=== PATIENT | female | born 1950 | race African-American/Black ===

== ENCOUNTER 2016-12-29 07:41 | Emergency (ER) | payer OTHER ==
[2016-12-29 09:07] LABS: APPEARANCE,URINE SLIGHTLY-CLOUDY; BILIRUBIN,URINE NEGATIVE (NEGATIVE); GLUCOSE, URINE NEGATIVE (NEGATIVE); KETONES,URINE NEGATIVE (NEGATIVE); LEUKOCYTE ESTERASE,URINE SMALL (NEGATIVE); NITRITE,URINE NEGATIVE (NEGATIVE); PROTEIN,URINE NEGATIVE (NEGATIVE); UROBILINOGEN,URINE NEGATIVE mg/dL (<2.0)
[2016-12-29 09:24] LABS: ABSOLUTE EOSINOPHILS # (AUTO) 0.1 10^3/uL (0.0-0.6); ABSOLUTE LYMPHOCYTES (AUTO) 1.9 10^3/uL (0.5-4.7); ABSOLUTE MONOCYTES (AUTO) 0.3 10^3/uL (0.1-1.4); ABSOLUTE NEUT (AUTO) 1.8 10^3/uL (1.7-8.2); BASOPHILS % (AUTO) 0.1 % (0-2); EOSINOPHILS % (AUTO) 2.2 % (0-6); HEMATOCRIT 39.3 % (36.0-47.0); HEMOGLOBIN 12.6 g/dL (12.0-15.5); HGB HCT DIFFERENCE -1.5; LYMPHOCYTES % (AUTO) 46.6 % (13-45); MEAN CORPUSCULAR HEMOGLOBIN 31.6 pg (27.0-33.4); MEAN CORPUSCULAR HGB CONC 32.2 g/dL (32.0-36.0); MEAN CORPUSCULAR VOLUME 98 fl (80-97); RED CELL DISTRIBUTION WIDTH 13.8 % (11.5-14.0); SEGMENTED NEUTROPHILS % (AUTO) 44.1 % (42-78); WHITE BLOOD COUNT 4.2 10^3/uL (4.0-10.5)
[2016-12-29 09:33] LABS: ALANINE AMINOTRANSFERASE 24 U/L (9-52); ALBUMIN 3.6 g/dL (3.5-5.0); ALKALINE PHOSPHATASE 62 U/L (38-126); ANION GAP 8 (5-19); ASPARTATE AMINO TRANSFERASE 16 U/L (14-36); BILIRUBIN,DIRECT 0.3 mg/dL (0.0-0.4); BILIRUBIN,TOTAL 0.5 mg/dL (0.2-1.3); BLOOD UREA NITROGEN 12 mg/dL (7-20); CALCIUM 9.5 mg/dL (8.4-10.2); CARBON DIOXIDE 29 mmol/L (22-30); CHLORIDE 106 mmol/L (98-107); CREATININE RESULT 0.84 mg/dL (0.52-1.25); GLUCOSE 202 mg/dL (75-110); LIPASE 310.2 U/L (23-300); POTASSIUM 4.1 mmol/L (3.6-5.0); SODIUM 143.2 mmol/L (137-145); TOTAL PROTEIN 6.9 g/dL (6.3-8.2)
[2016-12-29] MEDS ORDERED: ONDANSETRON HCL INJ/PF 4 MG/2 ML SDV IV ONE (09:42)
[2016-12-29] MEDS ORDERED: NORMAL SALINE 1000 ML 1,000 ML IV PRN (09:42)
[2016-12-29] MEDS ORDERED: MORPHINE SULFATE 10 MG/ML INJ IV ONE (09:42)
--- NOTE | 2016-12-29 09:53 | ER Document Report ---
ED General - General Chief Complaint: Abdominal Pain >50 Stated Complaint: NAUSEA Time Seen by Provider: 12/29/16 08:02 Mode of Arrival: Ambulatory Information source: Patient Notes: 56-year-old female presents with complaints of abdominal pain. Patient has a history of pancreatitis notes the pain is in the left upper quadrant associated with nausea without vomiting TRAVEL OUTSIDE OF THE [place] IN LAST 30 DAYS: No - HPI Onset: Yesterday Onset/Duration: Sudden Quality of pain: Sharp Severity: Mild Pain Level: 1 Associated symptoms: Headache - Admits to mild headache, Nausea Exacerbated by: Denies Relieved by: Denies Similar symptoms previously: Yes Recently seen / treated by doctor: Yes - Related Data Allergies/Adverse Reactions: Aztcteq-Qlt-Fhc Reductase Inhibitor Adverse Reaction (Verified 12/29/16 07:42) Myalgia Past Medical History - Social History Smoking Status: Never Smoker Cigarette use (# per day): No Chew tobacco use (# tins/day): No Smoking Education Provided: No Family History: Arthritis, DM, Hyperlipidemia, Hypertension, Malignancy Patient has suicidal ideation: No Patient has homicidal ideation: No - Past Medical History Cardiac Medical History: Reports: Hx Hypercholesterolemia, Hx Hypertension Denies: Hx DVT Pulmonary Medical History: Reports: Hx Bronchitis, Hx Pneumonia Neurological Medical History: Reports: Hx Migraine Endocrine Medical History: Reports: Hx Diabetes Mellitus Type 2 Renal/ Medical History: Denies: Hx Peritoneal Dialysis GI Medical History: Reports: Hx Colonoscopy, Hx Endoscopy Musculoskeltal Medical History: Reports Hx Arthritis Psychiatric Medical History: Denies: Hx Depression Past Surgical History: Reports: Hx Section - Immunizations Immunizations up to date: Yes Hx Diphtheria, Pertussis, Tetanus Vaccination: Yes Review of Systems - Review of Systems Notes: REVIEW OF SYSTEMS: CONSTITUTIONAL : Denies fever, chills, or sweats. Denies recent illness. EENT: Denies eye, ear, throat, or mouth pain or symptoms. Denies nasal or sinus congestion or discharge. Denies throat, tongue, or mouth swelling or difficulty swallowing. CARDIOVASCULAR: Denies chest pain. Denies palpitations or racing or irregular heart beat. Denies ankle edema. RESPIRATORY: Denies cough, cold, or chest congestion. Denies shortness of breath, difficulty breathing, or wheezing. GASTROINTESTINAL: Admits to abdominal pain GENITOURINARY: Denies difficulty urinating, painful urination, burning, frequency, blood in urine, or discharge. FEMALE GENITOURINARY: Denies vaginal bleeding, heavy or abnormal periods, irregular periods. Denies vaginal discharge or odor. MUSCULOSKELETAL: Denies back or neck pain or stiffness. Denies joint pain or swelling. SKIN: Denies rash, lesions or sores. HEMATOLOGIC : Denies easy bruising or bleeding. LYMPHATIC: Denies swollen, enlarged glands. NEUROLOGICAL: Admits to mild headache PSYCHIATRIC: Denies anxiety or stress. Denies depression, suicidal ideation, or homicidal ideation. ALL OTHER SYSTEMS REVIEWED AND NEGATIVE. PHYSICAL EXAMINATION: GENERAL: Well-appearing, well-nourished and in no acute distress. HEAD: Atraumatic, normocephalic. EYES: Pupils equal round and reactive to light, extraocular movements intact, conjunctiva are normal. ENT: Nares patent, oropharynx clear without exudates. Moist mucous membranes. NECK: Normal range of motion, supple without lymphadenopathy LUNGS: Breath sounds clear to auscultation bilaterally and equal. No wheezes rales or rhonchi. HEART: Regular rate and rhythm without murmurs ABDOMEN: Soft, tender in the left upper quadrant no rebound no guarding Female : deferred Musculoskeletal: Normal range of motion, no pitting or edema. No cyanosis. NEUROLOGICAL: Cranial nerves grossly intact. Normal speech, normal gait. Normal sensory, motor exams PSYCH: Normal mood, normal affect. SKIN: Warm, Dry, normal turgor, no rashes or lesions noted. Dictation was performed using [employer] voice recognition software Physical Exam - Vital signs Vitals: Temp Pulse Resp BP Pulse Ox 97.9 F 76 20 145/88 H 97 12/29/16 07:49 12/29/16 07:49 12/29/16 07:49 12/29/16 07:49 12/29/16 07:49 Course - Re-evaluation Re-evalutation: 12/29/16 09:53 Patient has pancreatitis again, IV fluids ordered nausea pain control given I expect discharge given how well she looks 12/29/16 11:16 Patient notes improvement of her symptoms, I will discharge at this time to follow-up with GI, she is otherwise stable for discharge After performing a Medical Screening Examination, I estimate there is LOW risk for ACUTE APPENDICITIS, BOWEL OBSTRUCTION, ACUTE CHOLECYSTITIS, PERFORATED DIVERTICULITIS, INCARCERATED HERNIA, PANCREATITIS, PELVIC INFLAMMATORY DISEASE, PERFORATED ULCER, ECTOPIC , or TUBO-OVARIAN ABSCESS, thus I consider the discharge disposition reasonable. Also, there is no evidence or peritonitis , sepsis, or toxicity. I have reevaluated this patient multiple times and no significant life threatening changes are noted. The patient and I have discussed the diagnosis and risks, and we agree with discharging home with close follow-up with the understanding that symptoms and presentations can change. We also discussed returning to the Emergency Department immediately if new or worsening symptoms occur. We have discussed the symptoms which are most concerning (e.g., bloody stool, fever, changing or worsening pain, vomiting) that necessitate immediate return. - Vital Signs Vital signs: Temp Pulse Resp BP Pulse Ox 97.9 F 76 20 145/88 H 97 12/29/16 07:49 12/29/16 07:49 12/29/16 07:49 12/29/16 07:49 12/29/16 07:49 - Laboratory Result Diagrams: 12/29/16 08:39 12/29/16 08:39 Laboratory results interpreted by me: 12/29/16 12/29/16 12/29/16 08:39 08:39 08:39 MCV 98 H Lymphocytes % 46.6 H Glucose 202 H Lipase 310.2 H Ur Leukocyte Esterase SMALL H Discharge - Discharge Clinical Impression: Acute pancreatitis Qualifiers: Pancreatitis type: unspecified pancreatitis type Acute pancreatitis complication: unspecified Qualified Code(s): K85.90 - Acute pancreatitis without necrosis or infection, unspecified Hypertension Qualifiers: Hypertension type: essential hypertension Qualified Code(s): I10 - Essential ( primary) hypertension Condition: Stable Disposition: HOME, SELF-CARE Instructions: Pancreatitis ([facility]) Prescriptions: Hydrocodone/Acetaminophen [[place] 5-325 mg Tablet] 1 tab PO Q6 #14 tablet Promethazine HCl [Phenergan 25 mg Tablet] 1 - 2 tab PO Q6H PRN #15 tablet PRN Reason: Referrals: ROME ARNOLD MD [Primary Care Provider] - Follow up as needed PIPER FOX MD [ACTIVE STAFF] - 12/30/16
[2016-12-29 12:05] VITALS: BP 147/70
== END 2016-12-29 12:05 | disposition home or self-care (01) ==
LOC: ER 07:41
DX: K85.90 Acute pancreatitis without necrosis or infection, unspecified (principal); R10.12 Left upper quadrant pain; R11.0 Nausea; R51 Headache; I10 Essential (primary) hypertension; E11.9 Type 2 diabetes mellitus without complications
CPT/HCPCS: 99284; 96361; 96374; 96375; 36415; 83690; 85025; 80053; 81001; J2270; J2405; J7030

== ENCOUNTER 2017-02-26 20:27 | Emergency (ER) | payer OTHER ==
[2017-02-27] MEDS ORDERED: ONDANSETRON 4 MG TAB.RAPDIS PO ONE (00:04)
--- NOTE | 2017-02-27 00:05 | ER Document Report ---
ED Medical Screen (RME) - General Chief Complaint: Headache Stated Complaint: HEADACHE,NECK PAIN,NAUSEA Time Seen by Provider: 02/27/17 00:03 Notes: 66-year-old female, chief complaint of pain in the upper left part of her neck and in her head, she states she slipped getting off the toilet and hit her head on her counter, she states she knocked herself out for "a few seconds". She denies vomiting but reports nausea. She states this actually happened 2 days ago but it kept hurting so she came for evaluation. She has not on a blood thinner. She also states she has diabetes and "wants her sugar checked". She denies feeling lightheaded, chest pain, shortness of breath, focal numbness or weakness, incontinence. TRAVEL OUTSIDE OF THE [place] IN LAST 30 DAYS: No - Related Data Allergies/Adverse Reactions: Jtaphir-Lpr-Deh Reductase Inhibitor Adverse Reaction (Verified 12/29/16 07:42) Myalgia Past Medical History - Past Medical History Cardiac Medical History: Reports: Hx Hypercholesterolemia, Hx Hypertension Denies: Hx DVT Pulmonary Medical History: Reports: Hx Bronchitis, Hx Pneumonia Neurological Medical History: Reports: Hx Migraine Endocrine Medical History: Reports: Hx Diabetes Mellitus Type 2 Renal/ Medical History: Denies: Hx Peritoneal Dialysis GI Medical History: Reports: Hx Colonoscopy, Hx Endoscopy Musculoskeltal Medical History: Reports Hx Arthritis Psychiatric Medical History: Denies: Hx Depression Past Surgical History: Reports: Hx Section - Immunizations Immunizations up to date: Yes Hx Diphtheria, Pertussis, Tetanus Vaccination: Yes Physical Exam - Vital signs Vitals: Temp Pulse Resp BP Pulse Ox 97.9 F 87 16 127/82 H 97 02/26/17 20:45 02/26/17 20:45 02/26/17 20:45 02/26/17 20:45 02/26/17 20:45 - Back Back: Tender - Pain mainly in the superior paracervical areas, there is worse pain on the left, generalized tenderness otherwise - Neurological Neuro grossly intact: Yes Cognition: Normal Orientation: AAOx4 Erna Coma Scale Eye Opening: Spontaneous [place] Coma Scale Verbal: Oriented [place] Coma Scale Motor: Obeys Commands [place] Coma Scale Total: 15 Speech: Normal Cranial nerves: Normal Cerebellar coordination: Normal Motor strength normal: LUE, RUE, LLE, RLE Course - Vital Signs Vital signs: Temp Pulse Resp BP Pulse Ox 97.9 F 87 16 127/82 H 97 02/26/17 20:45 02/26/17 20:45 02/26/17 20:45 02/26/17 20:45 02/26/17 20:45
[2017-02-27 00:53] LABS: ANION GAP 14 (5-19); BLOOD UREA NITROGEN 20 mg/dL (7-20); CALCIUM 10.4 mg/dL (8.4-10.2); CARBON DIOXIDE 29 mmol/L (22-30); CHLORIDE 100 mmol/L (98-107); CREATININE RESULT 1.14 mg/dL (0.52-1.25); GLUCOSE 269 mg/dL (75-110); POTASSIUM 4.4 mmol/L (3.6-5.0); SODIUM 142.7 mmol/L (137-145)
--- NOTE | 2017-02-27 01:06 | RADIOLOGY REPORT (SQ) ---
EXAM DESCRIPTION: CT HEAD WITHOUT COMPLETED DATE/TIME: 02/27/2017 12:55 am REASON FOR STUDY: fall, head injury, LOC COMPARISON: None. TECHNIQUE: Axial images acquired through the brain without intravenous contrast. Images reviewed wi th bone, brain and subdural windows. Images stored on PACS. All CT scanners at this facility use dose modulation, iterative reconstruction, and/or weight based d osing when appropriate to reduce radiation dose to as low as reasonably achievable (ALARA). [facility]: Dose Right [facility]: CareDose [facility]: Dose Right [facility]: Teradose 4D [facility]: Smart [employer] RADIATION DOSE: Up-to-date CT equipment and radiation dose reduction techniques were employed. CTDIv ol: 64.6 mGy. DLP: 1292 mGy-cm. mGy. LIMITATIONS: None. FINDINGS: VENTRICLES: Normal size and contour. CEREBRUM: No masses. No hemorrhage. No midline shift. No evidence for acute infarction. Normal gra y/white matter differentiation. No areas of low density in the white matter. CEREBELLUM: No masses. No hemorrhage. No alteration of density. No evidence for acute infarction. EXTRAAXIAL SPACES: No fluid collections. No masses. Atherosclerosis. ORBITS AND GLOBE: No intra- or extraconal masses. Normal contour of globe without masses. CALVARIUM: No fracture. PARANASAL SINUSES: No fluid or mucosal thickening. SOFT TISSUES: No mass or hematoma. OTHER: No other significant finding. IMPRESSION: No acute findings. COMMENT: Quality ID # [id number]: Final reports with documentation of one or more dose reduction techniques (e.g., Automated exposure control, adjustment of the mA and/or kV according to patient size, use of iterative reconstruction technique) TECHNICAL DOCUMENTATION: JOB ID: [id number] [employer]- All Rights Reserved
--- NOTE | 2017-02-27 01:43 | RADIOLOGY REPORT (SQ) ---
EXAM DESCRIPTION: CT CERVICAL SPINE WITHOUT COMPLETED DATE/TIME: 02/27/2017 12:55 am REASON FOR STUDY: fall, neck pain COMPARISON: None. TECHNIQUE: Axial images acquired through the cervical spine without intravenous contrast. Images re viewed with lung, soft tissue and bone windows. Reconstructed coronal and sagittal MPR images review ed. Images stored on PACS. All CT scanners at this facility use dose modulation, iterative reconstruction, and/or weight based d osing when appropriate to reduce radiation dose to as low as reasonably achievable (ALARA). [facility]: Dose Right [facility]: CareDose [facility]: Dose Right [facility]: Teradose 4D [facility]: Smart [employer] RADIATION DOSE: Up-to-date CT equipment and radiation dose reduction techniques were employed. CTDIv ol: 17.5 mGy. DLP: 376 mGy-cm. mGy. LIMITATIONS: None. FINDINGS: ALIGNMENT: Anatomic. MINERALIZATION: Normal. VERTEBRAL BODIES: No fractures or dislocation. DISCS: As below. FACETS, LATERAL MASSES, POSTERIOR ELEMENTS: C3-C4: Uihx-vo-cxosqnze C3-C4 spondylosis with jqhg-nm-ofiagfxx bilateral C4 bony foraminal stenosis , left more than right. Small disc bulge. C4-C5, C5-C6: Small desiccated disc bulge. Minimal spondylosis. HARDWARE: None in the spine. VISUALIZED RIBS: No fractures. LUNG APICES AND SOFT TISSUES: No significant or acute findings. OTHER: No other significant finding. IMPRESSION: No acute findings. TECHNICAL DOCUMENTATION: JOB ID: [id number] Quality ID # [id number]: Final reports with documentation of one or more dose reduction techniques (e.g., Au tomated exposure control, adjustment of the mA and/or kV according to patient size, use of iterative reconstruction technique) 2010 [employer]- All Rights Reserved
--- NOTE | 2017-02-27 02:02 | ER Document Report ---
ED General - General Chief Complaint: Headache Stated Complaint: HEADACHE,NECK PAIN,NAUSEA Time Seen by Provider: 02/27/17 00:03 Notes: Patient is a pleasant 66-year-old female who presents with complaint of headache and neck pain. Patient says she fell 2 days ago and hit her head against the sink. She also had neck against a sink as well. She has been having some pain ever since. Slight dizziness. No focal weakness or numbness. No other injuries. No fevers. No vomiting. Some nausea. No other complaints at this time. Is not on blood thinners. TRAVEL OUTSIDE OF THE [place] IN LAST 30 DAYS: No - Related Data Allergies/Adverse Reactions: Mefteip-Xmz-Gjx Reductase Inhibitor Adverse Reaction (Verified 12/29/16 07:42) Myalgia Past Medical History - Social History Smoking Status: Never Smoker Frequency of alcohol use: Rare Drug Abuse: None Family History: Arthritis, DM, Hyperlipidemia, Hypertension, Malignancy Patient has suicidal ideation: No Patient has homicidal ideation: No - Past Medical History Cardiac Medical History: Reports: Hx Hypercholesterolemia, Hx Hypertension Denies: Hx DVT Pulmonary Medical History: Reports: Hx Bronchitis, Hx Pneumonia Neurological Medical History: Reports: Hx Migraine Endocrine Medical History: Reports: Hx Diabetes Mellitus Type 2 Renal/ Medical History: Denies: Hx Peritoneal Dialysis GI Medical History: Reports: Hx Colonoscopy, Hx Endoscopy Musculoskeltal Medical History: Reports Hx Arthritis Psychiatric Medical History: Denies: Hx Depression Past Surgical History: Reports: Hx Section - Immunizations Immunizations up to date: Yes Hx Diphtheria, Pertussis, Tetanus Vaccination: Yes Review of Systems - Review of Systems Notes: My Normal Review Basic REVIEW OF SYSTEMS: CONSTITUTIONAL : Denies fever, chills, or sweats. Denies recent illness. EENT: Head and neck pain. MUSCULOSKELETAL: Neck pain. SKIN: Denies rash or skin lesions. HEMATOLOGIC : Denies easy bruising or bleeding. NEUROLOGICAL: Denies altered mental status or loss of consciousness. Has a headache. Denies weakness or paralysis or loss of use of either side. Denies problems with gait or speech. Denies sensory or motor loss. ALL OTHER SYSTEMS REVIEWED AND NEGATIVE. Physical Exam - Vital signs Vitals: Temp Pulse Resp BP Pulse Ox 97.9 F 87 16 127/82 H 97 02/26/17 20:45 02/26/17 20:45 02/26/17 20:45 02/26/17 20:45 02/26/17 20:45 - Notes Notes: General Appearance: Well nourished, alert, cooperative, no acute distress, no obvious discomfort. Well-appearing. Vitals: reviewed, See vital signs table. Head: no swelling or tenderness to the head Eyes: PERRL, EOMI, Conjuctiva clear Neck: Supple, midline tenderness palpation around C4-C5 area. No step-offs or deformities. Back: No tenderness to palpation of the thoracic or lumbar spine. No step-offs or deformities. Extremities: strength 5/5 in all extremities, good pulses in all extremities, no swelling or tenderness in the extremities, no edema. Skin: warm, dry, appropriate color, no rash Neuro: speech clear, oriented x 3, normal affect, responds appropriately to questions. Cranial nerves II through XII are intact. Distal sensation intact. Patient moves all extremities without difficulty. Course - Re-evaluation Re-evalutation: 02/27/17 04:[address] scans were negative. She looks well. She has normal gait on reevaluation. Formed I suspect she has a slight concussion from hitting her head. Encouraged her to follow-up closely with her doctor. I informed her return to ER if she has intractable vomiting, intractable pain, or feels unwell. Patient agrees with plan and will be discharged home. Dictation of this chart was performed using voice recognition software; therefore, there may be some unintended grammatical errors. - Vital Signs Vital signs: Temp Pulse Resp BP Pulse Ox 98.1 F 74 18 130/84 H 100 02/27/17 02:26 02/27/17 02:26 02/27/17 02:26 02/27/17 02:26 02/27/17 02:26 - Laboratory Result Diagrams: 02/26/17 23:59 Laboratory results interpreted by me: 02/26/17 23:59 Est GFR ( Amer) 58 L Est GFR (Non-Af Amer) 48 L Glucose 269 H Calcium 10.4 H Discharge - Discharge Clinical Impression: Neck pain, Hyperglycemia Mild closed head injury Qualifiers: Encounter type: initial encounter Qualified Code(s): S09.90XA - Unspecified injury of head, initial encounter Condition: Good Disposition: HOME, SELF-CARE Additional Instructions: Concussion You have suffered a concussion -- a temporary loss of certain brain functions due to a mild brain injury. The recovery is usually rapid and complete. The temporary problems occurring with a concussion can include loss of consciousness, dizziness, nausea, vomiting, and confusion. Repeat concussions can cause brain damage. In the future, avoid activities that will cause a blow to your head. Wear a helmet for sports such as snowboarding, biking, or skating. It's important that someone be with you for the first 24 hours. During this time, do not exercise or drive a vehicle. Do not take any pain medication stronger than acetaminophen unless prescribed by the physician. Any significant changes should be reported immediately to the physician. Signs of a problem may include: (1) Mental confusion (2) Incoordination or staggering (3) Repeated or forceful vomiting (4) Clear or bloody drainage from ear, mouth, or nose (5) Severe headache, not relieved by acetaminophen or prescribed pain medication (6) Failure to improve in 24 hours Your blood sugars was a little high. Please continue take her Lantus and your diabetes medications. Please follow-up with your primary care doctor for reevaluation in 2-3 days. Please return to the ER immediately if you have worsening pain, difficulty in bleeding, vomiting, or feel unwell. Referrals: ROME ARNOLD MD [Primary Care Provider] - 03/01/17
[2017-02-27 02:27] VITALS: BP 130/84
== END 2017-02-27 02:27 | disposition home or self-care (01) ==
LOC: EEVIPCON 20:27 → ER 20:27
DX: S09.90XA Unspecified injury of head, initial encounter (principal); R11.0 Nausea; M54.2 Cervicalgia; W18.30XA Fall on same level, unspecified, initial encounter; E11.65 Type 2 diabetes mellitus with hyperglycemia; E78.00 Pure hypercholesterolemia, unspecified; I10 Essential (primary) hypertension
CPT/HCPCS: 99284; 36415; 80048; 70450; 72125; S0119

== ENCOUNTER → 2017-11-06 | Outpatient (CLI) | payer OTHER ==
--- NOTE | 2017-11-07 15:08 | RADIOLOGY REPORT (SQ) ---
EXAM DESCRIPTION: SHOULDER RIGHT 2 OR MORE VIEWS COMPLETED DATE/TIME: 11/06/2017 2:13 pm REASON FOR STUDY: PAIN IN RIGHT SHOULDER M25.511 PAIN IN RIGHT SHOULDER M25.551 PAIN IN RIGHT HIP COMPARISON: 06/23/2015 NUMBER OF VIEWS: Three views. TECHNIQUE: Internal rotation, external rotation, and Y view images acquired of the right shoulder. LIMITATIONS: None. FINDINGS: MINERALIZATION: Normal. BONES: No acute fracture or dislocation. GLENOHUMERAL JOINT: Slight to mild arthritic changes, stable finding. ACROMIOCLAVICULAR JOINT: Stable mild arthritic changes. SOFT TISSUES: No calcifications. VISUALIZED RIBS, SPINE, AND LUNG: No other significant finding. OTHER: No other significant finding. IMPRESSION: 1 No significant interval changes since the prior examination dated 06/23/2015. Stable mild arthritic changes acromioclavicular and glenohumeral joints. TECHNICAL DOCUMENTATION: JOB ID: [id number] [place]- All Rights Reserved Reading location - IP/workstation name: [email or web address]
--- NOTE | 2017-11-07 16:49 | RADIOLOGY REPORT (SQ) ---
EXAM DESCRIPTION: HIP RIGHT AP/LATERAL COMPLETED DATE/TIME: 11/06/2017 2:13 pm REASON FOR STUDY: PAIN IN RIGHT HIP M25.511 PAIN IN RIGHT SHOULDER M25.551 PAIN IN RIGHT HIP COMPARISON: 07/28/2014 NUMBER OF VIEWS: Two views. TECHNIQUE: AP and frog-leg view of the right hip. LIMITATIONS: None. FINDINGS: MINERALIZATION: Normal. RIGHT HIP: Stable mild degenerative changes. No fracture or dislocation. OPPOSITE HIP: No fracture or dislocation. Stable mild degenerative changes No worrisome bone lesions . SOFT TISSUES: No findings. 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 Surgical metallic clips in the pelvic region, unchanged finding. IMPRESSION: 1 No significant interval changes since the prior study dated 07/28/2014. Stable mild de generative changes at the hips. TECHNICAL DOCUMENTATION: JOB ID: [id number] [employer]- All Rights Reserved Reading location - IP/workstation name: [email or web address]
== END ==
LOC: OD 13:55
PROVIDERS: ATTEND Internal Medicine
DX: M25.511 Pain in right shoulder (principal); M25.551 Pain in right hip; M16.11 Unilateral primary osteoarthritis, right hip

== ENCOUNTER 2017-11-12 21:06 | Emergency (ER) | payer OTHER, MEDICARE ==
[2017-11-12 21:16] VITALS: BP 123/62
[2017-11-12] MEDS ORDERED: MUPIROCIN CALCIUM 2% CREAM 15 GM TP ONE (23:04)
[2017-11-12] MEDS ORDERED: HYDROCODONE/ACETAMINOPHEN 5-325 MG (6 TAB/ER DISP) PO PRN (23:04)
--- NOTE | 2017-11-12 23:07 | ER Document Report ---
HPI - HPI Patient complains to provider of: Right shoulder pain Onset: Yesterday Onset/Duration: Gradual, Worse Quality of pain: Achy Pain Level: 4 Context: Patient presents complaining of chronic right shoulder pain due to arthritis. Patient states the shoulder pain worsened yesterday. Patient has been taking Mobic without improvement of her pain symptoms. Patient also states she noticed a bump to the medial aspect of her left thigh yesterday. Patient denies any fever. Patient does report that the area to her thigh was itching recently. Associated Symptoms: Other - Right shoulder joint pain. denies: Fever Exacerbated by: Movement Relieved by: Denies Similar symptoms previously: Yes Recently seen / treated by doctor: No - ROS ROS below otherwise negative: Yes Systems Reviewed and Negative: Yes All other systems reviewed and negative - CONSTITUTIONAL Constitutional: DENIES: Fever, Chills - NEURO Neurology: DENIES: Headache, Weakness - CARDIOVASCULAR Cardiovascular: DENIES: Chest pain - RESPIRATORY Respiratory: DENIES: Coughing - GASTROINTESTINAL Gastrointestinal: DENIES: Nausea, Patient vomiting - REPRODUCTIVE Reproductive: DENIES: : - MUSCULOSKELETAL Musculoskeletal: REPORTS: Extremity pain. DENIES: Back Pain - DERM Skin Color: Normal Notes: Skin lesion the left thigh Past Medical History - General Information source: Patient - Social History Smoking Status: Never Smoker Frequency of alcohol use: None Drug Abuse: None Occupation: Foodservice Family History: Arthritis, DM, Hyperlipidemia, Hypertension, Malignancy - Past Medical History Cardiac Medical History: Reports: Hx Hypercholesterolemia, Hx Hypertension Denies: Hx DVT Pulmonary Medical History: Reports: Hx Bronchitis, Hx Pneumonia Neurological Medical History: Reports: Hx Migraine Endocrine Medical History: Reports: Hx Diabetes Mellitus Type 2 Renal/ Medical History: Denies: Hx Peritoneal Dialysis GI Medical History: Reports: Hx Colonoscopy, Hx Endoscopy Musculoskeltal Medical History: Reports Hx Arthritis Psychiatric Medical History: Denies: Hx Depression Past Surgical History: Reports: Hx Section - Immunizations Immunizations up to date: Yes Hx Diphtheria, Pertussis, Tetanus Vaccination: Yes Vertical Provider Document - CONSTITUTIONAL Agree With Documented VS: Yes Exam Limitations: No Limitations General Appearance: WD/WN, No Apparent Distress - INFECTION CONTROL TRAVEL OUTSIDE OF THE [place] IN LAST 30 DAYS: No - HEENT HEENT: Atraumatic, Normal ENT Exam, Normocephalic - NECK Neck: Normal Inspection, Supple - RESPIRATORY Respiratory: Breath Sounds Normal, No Respiratory Distress - CARDIOVASCULAR Cardiovascular: Regular Rate, Regular Rhythm Pulses: Normal: Radial - BACK Back: Normal Inspection - MUSCULOSKELETAL/EXTREMETIES Musculoskeletal/Extremeties: MAEW, FROM, Tender - Generalized right shoulder joint tenderness with passive range of motion, no deformity, no dislocation, normal skin color and temperature overlying joint. Tenderness increases with extension and abduction - NEURO Level of Consciousness: Awake, Alert, Appropriate Motor/Sensory: No Motor Deficit, No Sensory Deficit - DERM Integumentary: Warm, Dry. negative: Rash, Abscess Notes: Patient with small 4 mm crusted skin lesion to medial aspect of left thigh with very faint surrounding erythema, no concern for cellulitis or lymphangitis Course - Vital Signs Vital signs: Temp Pulse Resp BP Pulse Ox 98.4 F 83 18 123/62 94 11/12/17 21:15 11/12/17 21:15 11/12/17 21:15 11/12/17 21:15 11/12/17 21:15 Discharge - Discharge Clinical Impression: Arthritis of shoulder, Skin lesion Condition: Stable Disposition: HOME, SELF-CARE Instructions: Arthritis ([facility]), Bactroban Ointment ([facility]) Additional Instructions: Return immediately for any new or worsening symptoms Followup with your primary care provider, call tomorrow to make a followup appointment Take your meloxicam as previously prescribed Follow-up with orthopedic doctor for any continued pain or problems Apply ointment to the skin lesion on your thigh twice a day for 1 week. Forms: Return to Work Referrals: [facility] [Provider Group] - Follow up in 3-5 days ROME ARNOLD MD [Primary Care Provider] - Follow up tomorrow
[2017-11-12] MEDS ORDERED: MUPIROCIN CALCIUM 2% CREAM 15 GM ONE (23:47)
== END 2017-11-12 23:55 | disposition home or self-care (01) ==
LOC: EEVIPCON 21:06 → ER 21:06
DX: M19.011 Primary osteoarthritis, right shoulder (principal); L98.9 Disorder of the skin and subcutaneous tissue, unspecified; E78.00 Pure hypercholesterolemia, unspecified; I10 Essential (primary) hypertension
CPT/HCPCS: 99283; J3490

== ENCOUNTER → 2018-05-16 | Outpatient (CLI) | payer OTHER ==
--- NOTE | 2018-05-16 16:29 | WOMENS IMAGING REPORT ---
EXAM DESCRIPTION: 3D SCREENING MAMMO BILAT COMPLETED DATE/TIME: 05/16/2018 4:10 pm REASON FOR STUDY: BILATERAL SCREENING MAMMO 3D/Z12.31 Z12.31 ENCNTR SCREEN MAMMOGRAM FOR MALIGNANT NEOPLASM OF JORDAN COMPARISON: [id number] TECHNIQUE: Standard craniocaudal and mediolateral oblique views of each breast recorded using digita l acquisition and breast tomosynthesis. LIMITATIONS: None. FINDINGS: No masses, calcifications or architectural distortion. No areas of suspicion. Read with the assistance of CAD. .[facility] - R2 C[employer]ova Version 1.3 .[facility] Imaging - R2 Cenova Version 1.3 .[facility] - R2 Cenova Version 2.4 .[facility] [place] R2 Cenova Version 2.4 .[facility] - R2 [employer] Version 9.2 IMPRESSION: NORMAL MAMMOGRAM. BIRADS 1. BREAST DENSITY: b. There are scattered areas of fibroglandular density. BIRAD: 1 NEGATIVE RECOMMENDATION: ROUTINE SCREENING COMMENT: The patient has been notified of the results by letter per SA requirements. Additional no tification policies are in place for contacting patient with suspicious or incomplete findings. Quality ID #[id number]: The [employer] recommends an annual screening mammogram for women aged 40 years or over. This facility utilizes a reminder system to ensure that all patients receive reminder letters, and/or direct phone calls for appointments. This includes reminders for routine scr eening mammograms, diagnostic mammograms, or other Breast Imaging Interventions when appropriate. Th is patient will be placed in the appropriate reminder system. The [employer] (ACR) has developed recommendations for screening MRI of the breast s in certain patient populations, to be used in conjunction with mammography. Breast MRI surveillanc e may be appropriate for women with more than 20% lifetime risk of developing breast cancer as deter mined by genetic testing, significant family history of the disease, or history of mantle radiation f or Hodgkins Disease. ACR Practice Guidelines 2008. DBT Technology DBT is a type of tomographic mammography. With conventional mammography, overlapping breast tissue ma y make lesions difficult to detect, even with good compression. DBT uses an x-ray tube that rotates a round the breast, taking images at different angles. These images are then combined to create thin sl ices of the breast that the radiologist can view as a 3D reconstruction. The [employer] unit can perform full-field digital mammograms (2D imaging); or DBT (3D imaging); or both, in a combination mode that quickly performs both the mammogram and the tomosynthesis scan while the breast is still compressed. PQRS 6045F: Fluoroscopic imaging is not utilized for breast tomosynthesis. TECHNICAL DOCUMENTATION: FINDING NUMBER: (1) ASSESSMENT: (1) JOB ID: [id number] [employer]- All Rights Reserved Reading location - IP/workstation name: [facility]
== END ==
LOC: WI 15:00
PROVIDERS: ATTEND Internal Medicine
DX: Z12.31 Encounter for screening mammogram for malignant neoplasm of breast (principal)
CPT/HCPCS: 77063; 77067

== ENCOUNTER → 2018-10-17 | Outpatient (CLI) | payer MEDICARE, OTHER ==
[2018-10-17 12:14] LABS: APPEARANCE,URINE SLIGHTLY-CLOUDY; BILIRUBIN,URINE NEGATIVE (NEGATIVE); COLOR,URINE YELLOW; GLUCOSE, URINE NEGATIVE (NEGATIVE); KETONES,URINE NEGATIVE (NEGATIVE); LEUKOCYTE ESTERASE,URINE LARGE (NEGATIVE); NITRITE,URINE NEGATIVE (NEGATIVE); PROTEIN,URINE NEGATIVE (NEGATIVE); URINE SPECIFIC GRAVITY 1.016; UROBILINOGEN,URINE NEGATIVE mg/dL (<2.0)
[2018-10-17 12:28] LABS: ABSOLUTE EOSINOPHILS # (AUTO) 0.1 10^3/uL (0.0-0.6); ABSOLUTE LYMPHOCYTES (AUTO) 1.7 10^3/uL (0.5-4.7); ABSOLUTE MONOCYTES (AUTO) 0.2 10^3/uL (0.1-1.4); ABSOLUTE NEUT (AUTO) 1.2 10^3/uL (1.7-8.2); BASOPHILS % (AUTO) 0.3 % (0-2); EOSINOPHILS % (AUTO) 2.3 % (0-6); HEMATOCRIT 36.7 % (36.0-47.0); HEMOGLOBIN 12.4 g/dL (12.0-15.5); LYMPHOCYTES % (AUTO) 52.7 % (13-45); MEAN CORPUSCULAR HEMOGLOBIN 32.1 pg (27.0-33.4); MEAN CORPUSCULAR HGB CONC 33.8 g/dL (32.0-36.0); MEAN CORPUSCULAR VOLUME 95 fl (80-97); MONOCYTES % (AUTO) 7.5 % (3-13); PLATELET COUNT 209 10^3/uL (150-450); RED BLOOD COUNT 3.86 10^6/uL (3.72-5.28); RED CELL DISTRIBUTION WIDTH 14.3 % (11.5-14.0); SEGMENTED NEUTROPHILS % (AUTO) 37.2 % (42-78); TOTAL CELLS COUNTED % (AUTO) 100 %; WHITE BLOOD COUNT 3.3 10^3/uL (4.0-10.5)
[2018-10-17 13:13] LABS: ALANINE AMINOTRANSFERASE 26 U/L (9-52); ALKALINE PHOSPHATASE 83 U/L (38-126); ANION GAP 8 (5-19); ASPARTATE AMINO TRANSFERASE 19 U/L (14-36); BILIRUBIN,DIRECT 0.3 mg/dL (0.0-0.4); BILIRUBIN,TOTAL 0.4 mg/dL (0.2-1.3); BLOOD UREA NITROGEN 17 mg/dL (7-20); CALCIUM 9.9 mg/dL (8.4-10.2); CARBON DIOXIDE 28 mmol/L (22-30); CHLORIDE 104 mmol/L (98-107); GLUCOSE 184 mg/dL (75-110); POTASSIUM 4.1 mmol/L (3.6-5.0); SODIUM 140.3 mmol/L (137-145); TOTAL PROTEIN 7.4 g/dL (6.3-8.2); TRIGLYCERIDES 136 mg/dL (<150); URIC ACID 6.9 mg/dL (2.5-7.5)
[2018-10-17 13:27] LABS: DIRECT LDL 158 mg/dL (<100)
[2018-10-17 13:33] LABS: FREE T4 (FREE THYROXINE) 0.96 ng/dL (0.78-2.19)
[2018-10-17 13:47] LABS: THYROID STIMULATING HORMONE 0.99 uIU/mL (0.47-4.68)
[2018-10-18 13:37] LABS: CREATININE URINE 119.5 mg/dL (Not Estab.); MICROALBUMIN URINE 40.3 ug/mL (Not Estab.)
== END ==
LOC: OD 11:02
PROVIDERS: ATTEND Internal Medicine
DX: E11.42 Type 2 diabetes mellitus with diabetic polyneuropathy (principal)
CPT/HCPCS: 36415; 80053; 80061; 81001; 82043; 82570; 83036; 84439; 84443; 84550; 85025

== ENCOUNTER 2018-11-14 11:36 | Emergency (ER) | payer MEDICARE, OTHER ==
--- NOTE | 2018-11-14 12:06 | ER Document Report ---
ED Medical Screen (RME) - General Chief Complaint: Chest Pain Stated Complaint: SIDE PAIN Time Seen by Provider: 11/14/18 11:57 Primary Care Provider: ROME ARNOLD MD [Primary Care Provider] - Follow up as needed Mode of Arrival: Ambulatory Information source: Patient Notes: Patient presents emergency department with complaints of left-sided rib pain side pain for the past few days. Denies trauma denies injury. Denies other symptoms such as pain with void fever vomiting diarrhea. Denies past medical history of kidney stones. Denies chest pain I have greeted and performed a rapid initial assessment of this patient. A comprehensive ED assessment and evaluation of the patient, analysis of test results and completion of the medical decision making process will be conducted by additional ED providers. Dictation of this chart was performed using voice recognition software; therefore, there may be some unintended grammatical errors. TRAVEL OUTSIDE OF THE [place] IN LAST 30 DAYS: No - Related Data Allergies/Adverse Reactions: Breokwa-Luj-Vjx Reductase Inhibitor Adverse Reaction (Verified 11/14/18 11:38) Myalgia Past Medical History - Past Medical History Cardiac Medical History: Reports: Hx Hypercholesterolemia, Hx Hypertension Denies: Hx DVT Pulmonary Medical History: Reports: Hx Bronchitis, Hx Pneumonia Neurological Medical History: Reports: Hx Migraine Endocrine Medical History: Reports: Hx Diabetes Mellitus Type 2 Renal/ Medical History: Denies: Hx Peritoneal Dialysis GI Medical History: Reports: Hx Colonoscopy, Hx Endoscopy Musculoskeltal Medical History: Reports Hx Arthritis Psychiatric Medical History: Denies: Hx Depression Past Surgical History: Reports: Hx Section - Immunizations Immunizations up to date: Yes Hx Diphtheria, Pertussis, Tetanus Vaccination: Yes Physical Exam - Vital signs Vitals: Temp Pulse Resp BP Pulse Ox 97.8 F 64 18 147/71 H 98 11/14/18 11:52 11/14/18 11:52 11/14/18 11:52 11/14/18 11:52 11/14/18 11:52 Course - Vital Signs Vital signs: Temp Pulse Resp BP Pulse Ox 97.8 F 64 18 147/71 H 98 11/14/18 11:52 11/14/18 11:52 11/14/18 11:52 11/14/18 11:52 11/14/18 11:52 Doctor's Discharge - Discharge Referrals: ROME ARNOLD MD [Primary Care Provider] - Follow up as needed
[2018-11-14 12:21] LABS: ABSOLUTE EOSINOPHILS # (AUTO) 0.1 10^3/uL (0.0-0.6); ABSOLUTE LYMPHOCYTES (AUTO) 1.9 10^3/uL (0.5-4.7); ABSOLUTE MONOCYTES (AUTO) 0.3 10^3/uL (0.1-1.4); ABSOLUTE NEUT (AUTO) 1.8 10^3/uL (1.7-8.2); BASOPHILS % (AUTO) 0.3 % (0-2); EOSINOPHILS % (AUTO) 1.4 % (0-6); HEMATOCRIT 37.4 % (36.0-47.0); HEMOGLOBIN 12.4 g/dL (12.0-15.5); MEAN CORPUSCULAR HGB CONC 33.1 g/dL (32.0-36.0); MEAN CORPUSCULAR VOLUME 97 fl (80-97); PLATELET COUNT 205 10^3/uL (150-450); RED BLOOD COUNT 3.87 10^6/uL (3.72-5.28); RED CELL DISTRIBUTION WIDTH 13.7 % (11.5-14.0); SEGMENTED NEUTROPHILS % (AUTO) 44.3 % (42-78); TOTAL CELLS COUNTED % (AUTO) 100 %
[2018-11-14 12:26] LABS: APPEARANCE,URINE CLEAR; BILIRUBIN,URINE NEGATIVE (NEGATIVE); COLOR,URINE STRAW; GLUCOSE, URINE NEGATIVE (NEGATIVE); KETONES,URINE NEGATIVE (NEGATIVE); LEUKOCYTE ESTERASE,URINE SMALL (NEGATIVE); NITRITE,URINE NEGATIVE (NEGATIVE); PROTEIN,URINE NEGATIVE (NEGATIVE); URINE SPECIFIC GRAVITY 1.006; UROBILINOGEN,URINE NEGATIVE mg/dL (<2.0)
[2018-11-14 12:38] LABS: ALANINE AMINOTRANSFERASE 28 U/L (9-52); ALBUMIN 4.1 g/dL (3.5-5.0); ALKALINE PHOSPHATASE 71 U/L (38-126); ANION GAP 9 (5-19); ASPARTATE AMINO TRANSFERASE 19 U/L (14-36); BILIRUBIN,DIRECT 0.2 mg/dL (0.0-0.4); BILIRUBIN,TOTAL 0.5 mg/dL (0.2-1.3); BLOOD UREA NITROGEN 18 mg/dL (7-20); CALCIUM 10.1 mg/dL (8.4-10.2); CARBON DIOXIDE 30 mmol/L (22-30); CHLORIDE 103 mmol/L (98-107); GLUCOSE 147 mg/dL (75-110); POTASSIUM 4.3 mmol/L (3.6-5.0); SODIUM 141.5 mmol/L (137-145); TOTAL PROTEIN 7.6 g/dL (6.3-8.2)
--- NOTE | 2018-11-14 13:42 | RADIOLOGY REPORT (SQ) ---
EXAM DESCRIPTION: RIBS LEFT W/PA CHEST COMPLETED DATE/TIME: 11/14/2018 12:16 pm REASON FOR STUDY: left rib side pain COMPARISON: None. TECHNIQUE: Frontal view of the chest and additional views of the left ribs acquired. NUMBER OF VIEWS: Four view. LIMITATIONS: None. FINDINGS: FRONTAL CXR: No pneumothorax. No pleural effusion. No atelectasis or infiltrates. RIBS: No displaced rib fractures. No lytic or blastic bony lesions. OTHER: No other significant finding. IMPRESSION: NO PNEUMOTHORAX. NO DISPLACED RIB FRACTURES. COMMENT: SITE OF TRAUMA/COMPLAINT MARKED/STAMP COMPLETED: No TECHNICAL DOCUMENTATION: JOB ID: [id number] [employer]- All Rights Reserved Reading location - IP/workstation name: [email or web address]
[2018-11-14] MEDS ORDERED: VALACYCLOVIR HCL 500 MG TABLET PO ONE (13:55)
--- NOTE | 2018-11-14 13:59 | ER Document Report ---
HPI - HPI Patient complains to provider of: Left side pain Time Seen by Provider: 11/14/18 11:57 Onset: Other - 3 days Onset/Duration: Persistent Quality of pain: Achy Pain Level: 4 Context: Patient presents complaining of left side pain for the past 3 days. Patient d enies any chest pain cough or shortness of breath. Patient denies any nausea vomiting or diarrhea. Patient denies any fever or urinary symptoms. Associated Symptoms: denies: Chest pain, Nonproductive cough, Productive cough, Fever, Headache, Vomiting Exacerbated by: Denies Relieved by: Denies Similar symptoms previously: No Recently seen / treated by doctor: No - ROS ROS below otherwise negative: Yes Systems Reviewed and Negative: Yes All other systems reviewed and negative - CONSTITUTIONAL Constitutional: DENIES: Fever, Chills - NEURO Neurology: DENIES: Headache, Weakness - CARDIOVASCULAR Cardiovascular: DENIES: Chest pain - RESPIRATORY Respiratory: DENIES: Trouble Breathing, Coughing - GASTROINTESTINAL Gastrointestinal: REPORTS: Abdominal Pain - Left lateral side. DENIES: Nausea, Patient vomiting, Diarrhea - URINARY Urinary: DENIES: Dysuria - REPRODUCTIVE Reproductive: DENIES: : - DERM Skin Color: Normal Skin Problems: Rash Past Medical History - General Information source: Patient - Social History Smoking Status: Never Smoker Frequency of alcohol use: None Drug Abuse: None Occupation: Foodservice Family History: Arthritis, DM, Hyperlipidemia, Hypertension, Malignancy Patient has suicidal ideation: No Patient has homicidal ideation: No - Past Medical History Cardiac Medical History: Reports: Hx Hypercholesterolemia, Hx Hypertension Denies: Hx DVT Pulmonary Medical History: Reports: Hx Bronchitis, Hx Pneumonia Neurological Medical History: Reports: Hx Migraine Endocrine Medical History: Reports: Hx Diabetes Mellitus Type 2 Renal/ Medical History: Denies: Hx Peritoneal Dialysis GI Medical History: Reports: Hx Colonoscopy, Hx Endoscopy Musculoskeletal Medical History: Reports Hx Arthritis Psychiatric Medical History: Denies: Hx Depression Past Surgical History: Reports: Hx Section - Immunizations Immunizations up to date: Yes Hx Diphtheria, Pertussis, Tetanus Vaccination: Yes Vertical Provider Document - CONSTITUTIONAL Agree With Documented VS: Yes Exam Limitations: No Limitations General Appearance: WD/WN, No Apparent Distress - INFECTION CONTROL TRAVEL OUTSIDE OF THE [place] IN LAST 30 DAYS: No - HEENT HEENT: Atraumatic, Normocephalic - NECK Neck: Normal Inspection, Supple. negative: Lymphadenopathy-Left, Lymphadenopath y-Right - RESPIRATORY Respiratory: Breath Sounds Normal, No Respiratory Distress. negative: Chest Non-Tender - Left lateral rib tenderness - CARDIOVASCULAR Cardiovascular: Regular Rate, Regular Rhythm, No Murmur - GI/ABDOMEN Gastrointestinal: Abdomen Soft, Abdomen Non-Tender - BACK Back: Normal Inspection - MUSCULOSKELETAL/EXTREMETIES Musculoskeletal/Extremeties: TAVO LAGUNAS - NEURO Level of Consciousness: Awake, Alert, Appropriate Motor/Sensory: No Motor Deficit - DERM Integumentary: Warm, Dry, Rash - Patient with vesicular rash to left upper quadrant of abdomen that extends to the left lateral side. Course - Re-evaluation Re-evalutation: 11/14/18 14:17 Patient with rash worrisome for shingles this does coincide with patient's pain symptoms at this time. Patient otherwise nontoxic in appearance. Patient with otherwise benign diagnostic evaluation at this time. - Vital Signs Vital signs: Temp Pulse Resp BP Pulse Ox 97.8 F 64 18 147/71 H 98 11/14/18 11:52 11/14/18 11:52 11/14/18 11:52 11/14/18 11:52 11/14/18 11:52 - Laboratory Result Diagrams: 11/14/18 12:08 11/14/18 12:08 Laboratory results interpreted by me: 11/14/18 11/14/18 11/14/18 12:08 12:08 12:08 Lymphocytes % 47.0 H Glucose 147 H Ur Leukocyte Esterase SMALL H 11/14/18 13:56 Labs- Entire Visit 11/14/18 11/14/18 11/14/18 12:08 12:08 12:08 WBC 4.0 RBC 3.87 Hgb 12.4 Hct 37.4 MCV 97 MCH 32.0 MCHC 33.1 RDW 13.7 Plt Count 205 Seg Neutrophils % 44.3 Lymphocytes % 47.0 H Monocytes % 7.0 Eosinophils % 1.4 Basophils % 0.3 Absolute Neutrophils 1.8 Absolute Lymphocytes 1.9 Absolute Monocytes 0.3 Absolute Eosinophils 0.1 Absolute Basophils 0.0 Sodium 141.5 Potassium 4.3 Chloride 103 Carbon Dioxide 30 Anion Gap 9 BUN 18 Creatinine 0.86 Est GFR ( Amer) > 60 Est GFR (Non-Af Amer) > 60 Glucose 147 H Calcium 10.1 Total Bilirubin 0.5 Direct Bilirubin 0.2 Neonat Total Bilirubin Not Reportable Neonat Direct Bilirubin Not Reportable Neonat Indirect Bili Not Reportable AST 19 ALT 28 Alkaline Phosphatase 71 Total Protein 7.6 Albumin 4.1 Urine Color STRAW Urine Appearance CLEAR Urine pH 6.0 Ur Specific Gravelly 1.006 Urine Protein NEGATIVE Urine Glucose (UA) NEGATIVE Urine Ketones NEGATIVE Urine Blood NEGATIVE Urine Nitrite NEGATIVE Urine Bilirubin NEGATIVE Urine Urobilinogen NEGATIVE Ur Leukocyte Esterase SMALL H Urine WBC (Auto) 2 Urine RBC (Auto) 1 U Hyaline Cast (Auto) 4 Squamous Epi Cells Auto 1 Urine Mucus (Auto) RARE Urine Ascorbic Acid NEGATIVE - Diagnostic Test Radiology reviewed: Reports reviewed - EKG Interpretation by Me EKG shows normal: Sinus rhythm Rate: Normal Rhythm: NSR Additional EKG results interpreted by me: 11/14/18 13:57 QTC 442, no ST elevation. Discharge - Discharge Clinical Impression: Shingles Qualifiers: Herpes zoster complications: without complications Qualified Code(s): B02.9 - Zoster without complications Condition: Stable Disposition: HOME, SELF-CARE Instructions: Shingles ([facility]) Additional Instructions: Return immediately for any new or worsening symptoms Followup with your primary care provider, call tomorrow to make a followup appointment Prescriptions: Lidocaine [Lidoderm 5% (700 mg) Transdermal Patch] 1 patch TP DAILY PRN #10 adh. .patch PRN Reason: Tramadol HCl [Ultram 50 mg Tablet] 50 mg PO ASDIR PRN #20 tablet PRN Reason: Valacyclovir HCl [Valacyclovir] 1,000 mg PO TID #21 tablet Forms: Return to Work Referrals: ROME ARNOLD MD [Primary Care Provider] - Follow up as needed
--- NOTE | 2018-11-14 14:34 | EKG REPORT ---
SEVERITY:- NORMAL ECG - SINUS RHYTHM : Confirmed by: John Shaw MD 14-Nov-2018 14:34:18
[2018-11-14 14:36] VITALS: BP 149/83
== END 2018-11-14 14:43 | disposition home or self-care (01) ==
LOC: ER 11:36
DX: B02.9 Zoster without complications (principal); R10.9 Unspecified abdominal pain; I10 Essential (primary) hypertension; E11.9 Type 2 diabetes mellitus without complications
CPT/HCPCS: 36415; 80053; 81001; 85025; 93005; 93010; 99284

== ENCOUNTER 2018-12-02 22:51 | Emergency (ER) | payer OTHER ==
[2018-12-03] MEDS ORDERED: HYDROCODONE/ACETAMINOPHEN 5-325 MG (6 TAB/ER DISP) PO PRN (01:16)
--- NOTE | 2018-12-03 01:24 | ER Document Report ---
HPI - HPI Time Seen by Provider: 12/03/18 01:10 Pain Level: 5 Notes: Patient is a 68-year-old female presenting with chief complaint of left flank pain. Patient reports she was diagnosed with shingles a few weeks ago, states she has finished all of her medication however she states the shingles is still present and causing her increased discomfort. - REPRODUCTIVE Reproductive: DENIES: : Past Medical History - General Information source: Patient - Social History Smoking Status: Never Smoker Frequency of alcohol use: None Drug Abuse: None Family History: Arthritis, DM, Hyperlipidemia, Hypertension, Malignancy - Past Medical History Cardiac Medical History: Reports: Hx Hypercholesterolemia, Hx Hypertension Denies: Hx DVT Pulmonary Medical History: Reports: Hx Bronchitis, Hx Pneumonia Neurological Medical History: Reports: Hx Migraine Endocrine Medical History: Reports: Hx Diabetes Mellitus Type 2 Renal/ Medical History: Denies: Hx Peritoneal Dialysis GI Medical History: Reports: Hx Colonoscopy, Hx Endoscopy Musculoskeletal Medical History: Reports Hx Arthritis Psychiatric Medical History: Denies: Hx Depression Past Surgical History: Reports: Hx Section - Immunizations Immunizations up to date: Yes Hx Diphtheria, Pertussis, Tetanus Vaccination: Yes Vertical Provider Document - CONSTITUTIONAL Notes: PHYSICAL EXAMINATION: GENERAL: Well-appearing, well-nourished and in no acute distress. HEAD: Atraumatic, normocephalic. EYES: Pupils equal round extraocular movements intact, conjunctiva are normal. ENT: Nares patent NECK: Normal range of motion LUNGS: No respiratory distress Genitourinary: No CVA tenderness. Musculoskeletal: Normal range of motion NEUROLOGICAL: Normal speech, normal gait. PSYCH: Normal mood, normal affect. SKIN: Rash noted to the left flank rating around to the left abdomen consistent with shingles. This appears to be a maculopapular rash. This does not cross the midline. - INFECTION CONTROL TRAVEL OUTSIDE OF THE [place] IN LAST 30 DAYS: No Course - Re-evaluation Re-evalutation: Patient's physical examination is consistent with shingles. Patient will be restarted on all the appropriate medications and discharged home in stable condition. - Vital Signs Vital signs: Temp Pulse Resp BP Pulse Ox 97.6 F 66 18 163/76 H 99 12/02/18 23:00 12/02/18 23:00 12/02/18 23:00 12/02/18 23:00 12/02/18 23:00 Discharge - Discharge Clinical Impression: Shingles Qualifiers: Herpes zoster complications: without complications Qualified Code(s): B02.9 - Zoster without complications Condition: Stable Disposition: HOME, SELF-CARE Additional Instructions: Your rash and pain is consistent with a diagnosis of shingles. Please continue taking the gabapentin that have already been prescribed for your shingles. You will be started on a course of prednisone today. Please note that this may elevate your blood sugars. Please take exactly as directed until the medications are completed. Return to the emergency department immediately if you develop severe headache, weakness, numbness, worsening of the rash, fever, persistent vomiting, or any other symptoms that are worrisome to you. Prescriptions: Hydrocodone Bit/Acetaminophen [Hydrocodon-Acetaminophen 5-325] 1 each PO Q4H #12 tablet Prednisone [Deltasone 20 mg Tablet] 2 tab PO DAILY 5 Days #10 tablet Valacyclovir HCl [Valacyclovir] 1,000 mg PO TID #21 tablet Forms: Return to Work Referrals: ROME ARNOLD MD [Primary Care Provider] - Follow up as needed
[2018-12-03] MEDS ORDERED: PREDNISONE 20 MG TABLET PO ONE (01:31)
[2018-12-03] MEDS ORDERED: VALACYCLOVIR HCL 500 MG TABLET PO ONE (01:31)
[2018-12-03 02:24] VITALS: BP 159/66
== END 2018-12-03 02:00 | disposition home or self-care (01) ==
LOC: ER 22:51
DX: B02.9 Zoster without complications (principal); E11.9 Type 2 diabetes mellitus without complications; I10 Essential (primary) hypertension
CPT/HCPCS: 99283; J7512

== ENCOUNTER 2018-12-09 23:36 | Emergency (ER) | payer OTHER ==
[2018-12-10] MEDS ORDERED: KETOROLAC TROMETHAMINE INJ/PF 30 MG/1 ML SDV IV ONE (00:41)
[2018-12-10 01:12] LABS: ANION GAP 10 (5-19); BLOOD UREA NITROGEN 30 mg/dL (7-20); CARBON DIOXIDE 29 mmol/L (22-30); CHLORIDE 97 mmol/L (98-107); SODIUM 135.8 mmol/L (137-145)
[2018-12-10 01:13] LABS: ABSOLUTE EOSINOPHILS # (AUTO) 0.1 10^3/uL (0.0-0.6); ABSOLUTE LYMPHOCYTES (AUTO) 3.3 10^3/uL (0.5-4.7); ABSOLUTE MONOCYTES (AUTO) 0.4 10^3/uL (0.1-1.4); ABSOLUTE NEUT (AUTO) 1.9 10^3/uL (1.7-8.2); BASOPHILS % (AUTO) 0.2 % (0-2); EOSINOPHILS % (AUTO) 1.4 % (0-6); HEMATOCRIT 37.6 % (36.0-47.0); HEMOGLOBIN 12.5 g/dL (12.0-15.5); LYMPHOCYTES % (AUTO) 57.9 % (13-45); MEAN CORPUSCULAR HEMOGLOBIN 32.5 pg (27.0-33.4); MEAN CORPUSCULAR HGB CONC 33.4 g/dL (32.0-36.0); MEAN CORPUSCULAR VOLUME 98 fl (80-97); MONOCYTES % (AUTO) 6.3 % (3-13); PLATELET COUNT 216 10^3/uL (150-450); RED BLOOD COUNT 3.86 10^6/uL (3.72-5.28); RED CELL DISTRIBUTION WIDTH 14.6 % (11.5-14.0); SEGMENTED NEUTROPHILS % (AUTO) 34.2 % (42-78); TOTAL CELLS COUNTED % (AUTO) 100 %; WHITE BLOOD COUNT 5.6 10^3/uL (4.0-10.5)
[2018-12-10 01:20] LABS: APPEARANCE,URINE CLEAR; BILIRUBIN,URINE NEGATIVE (NEGATIVE); COLOR,URINE STRAW; GLUCOSE, URINE >=500 mg/dL (NEGATIVE); KETONES,URINE NEGATIVE (NEGATIVE); LEUKOCYTE ESTERASE,URINE SMALL (NEGATIVE); NITRITE,URINE NEGATIVE (NEGATIVE); PROTEIN,URINE NEGATIVE (NEGATIVE); URINE SPECIFIC GRAVITY 1.021; UROBILINOGEN,URINE NEGATIVE mg/dL (<2.0)
[2018-12-10 01:20] LABS: GLUCOSE 445 mg/dL (75-110)
--- NOTE | 2018-12-10 01:20 | RADIOLOGY REPORT (SQ) ---
EXAM DESCRIPTION: XR ABDOMEN SUPINE AND ERECT WITH CHEST (ABD ACUTE SERIES) COMPLETED DATE/TME: 12/10/2018 00:42 CLINICAL HISTORY: 68 years, Female, abdominal pain COMPARISON: None. NUMBER OF VIEWS: Four TECHNIQUE: PA view the chest with supine and upright images of the abdomen LIMITATIONS: None. FINDINGS: The lungs are clear. The heart is normal in size with a tortuous aorta. There is no pneumothorax or pleural effusion. There is no intraperitoneal free air. There are no dilated loops of small bowel or air-fluid levels. There is a moderate amount of stool within the colon. There are no abnormal calcifications. There is no acute fracture. IMPRESSION: No acute cardiopulmonary abnormality. Nonobstructing bowel gas pattern. copyright 2010 [employer]- All Rights Reserved
[2018-12-10] MEDS ORDERED: INSULIN REG, HUMAN 100 UNIT/ML 3 ML VIAL (PYX) SUBCUT ONE (01:58)
[2018-12-10] MEDS ORDERED: GABAPENTIN 300 MG CAPSULE PO ONE (02:01)
--- NOTE | 2018-12-10 02:06 | ER Document Report ---
ED General - General Chief Complaint: Abdominal Pain Stated Complaint: SWELLING LEFT SIDE Time Seen by Provider: 12/10/18 00:23 Primary Care Provider: ROME ARNOLD MD [Primary Care Provider] - Follow up tomorrow Notes: Patient is a 60-year-old female presents with complaint of pain over the left side of her abdomen. She is been treated several times now for shingles this area. She says that she had worsening pain tonight and she is concerned that maybe there is something more than shingles going on. Said the pain is over the same location however it is more intense than the shingles of faded. Some na usea. No vomiting. No diarrhea. No fevers. Nothing seems to make the pain better or worse. No other complaints at this time. TRAVEL OUTSIDE OF THE [place] IN LAST 30 DAYS: No - Related Data Allergies/Adverse Reactions: Fadhtlj-Qae-Ijx Reductase Inhibitor Adverse Reaction (Verified 12/10/18 00:09) Myalgia Past Medical History - Social History Smoking Status: Former Smoker Frequency of alcohol use: None Drug Abuse: None Family History: Arthritis, DM, Hyperlipidemia, Hypertension, Malignancy Patient has suicidal ideation: No Patient has homicidal ideation: No - Past Medical History Cardiac Medical History: Reports: Hx Hypercholesterolemia, Hx Hypertension Denies: Hx DVT Pulmonary Medical History: Reports: Hx Bronchitis, Hx Pneumonia Neurological Medical History: Reports: Hx Migraine Endocrine Medical History: Reports: Hx Diabetes Mellitus Type 2 Renal/ Medical History: Denies: Hx Peritoneal Dialysis GI Medical History: Reports: Hx Colonoscopy, Hx Endoscopy Musculoskeletal Medical History: Reports Hx Arthritis Psychiatric Medical History: Denies: Hx Depression Past Surgical History: Reports: Hx Section - Immunizations Immunizations up to date: Yes Hx Diphtheria, Pertussis, Tetanus Vaccination: Yes Review of Systems - Review of Systems Notes: My Normal Review Basic REVIEW OF SYSTEMS: CONSTITUTIONAL : Denies fever, chills, or sweats. Denies recent illness. EENT: Denies eye, ear, throat, or mouth pain or symptoms. Denies nasal or sinus congestion. RESPIRATORY: Denies cough, cold, or chest congestion. Denies shortness of b reath, difficulty breathing, or wheezing. GASTROINTESTINAL: Left-sided abdominal pain. No vomiting or diarrhea. GENITOURINARY: Denies difficulty urinating, painful urination, burning, frequency, or blood in urine. MUSCULOSKELETAL: Denies neck or back pain or joint pain or swelling. SKIN: Shingles on left side. NEUROLOGICAL: Denies altered mental status or loss of consciousness. Denies headache. Denies weakness or paralysis or loss of use of either side. Denies problems with gait or speech. Denies sensory or motor loss. ALL OTHER SYSTEMS REVIEWED AND NEGATIVE. Physical Exam - Vital signs Vitals: Temp Pulse Resp BP Pulse Ox 97.5 F 74 16 127/81 H 97 12/09/18 23:45 12/09/18 23:45 12/09/18 23:45 12/09/18 23:45 12/09/18 23:45 - Notes Notes: General Appearance: Well nourished, alert, cooperative, no acute distress, moderate obvious discomfort. Vitals: reviewed, See vital signs table. Head: no swelling or tenderness to the head Eyes: PERRL, EOMI, Conjuctiva clear Mouth: No decreasd moisture Lungs: No wheezing, No rales, No rhonci, No accessory muscle use, good air exchange bilaterally. Heart: Normal rate, Regular rythm, No murmur, no rub Abdomen: Normal BS, soft, No rigidity, No reproducible abdominal tenderness to palpation., No guarding, no rebound, no abdominal masses, no organomegaly Extremities: good pulses in all extremities, no swelling or tenderness in the extremities, no edema. Skin: Few areas of scarring from where the previous shingles rash was on the left back and left anterior abdomen. Neuro: speech clear, oriented x 3, normal affect, responds appropriately to questions. Course - Re-evaluation Re-evalutation: 12/10/18 03:38 The only concerning finding on the patient's laboratory evaluation is that her blood sugar is high. I did give her a dose of insulin. Is not surprising her blood sugar is high being that she has recently been on steroids because of her shingles. On exam she just has what appears to be some scarring or albarran letter from her previous shingles rash. There is no surrounding redness or erythema. I cannot actually reproduce any pain to palpation of her abdomen. I do not feel the patient's CT scan at this time as she has no reproducible pain palpation of abdomen, she has no leukocytosis, no fever, and she overall looks well. We will try her on gabapentin I suspect pain could be related to postherpetic neuralgia. I informed her to follow-up closely with Dr. Arnold this week for reevaluation. I encouraged her return to ER if she has worsening pain, fevers, vomiting, or feels unwell. Patient agrees with plan will be discharged home. Dictation of this chart was performed using voice recognition software; theref ore, there may be some unintended grammatical errors. - Vital Signs Vital signs: Temp Pulse Resp BP Pulse Ox 98.5 F 67 14 137/82 H 97 12/10/18 02:12 12/10/18 02:12 12/10/18 02:12 12/10/18 02:12 12/10/18 02:12 - Laboratory Result Diagrams: 12/10/18 00:25 12/10/18 00:25 Laboratory results interpreted by me: 12/10/18 12/10/18 12/10/18 00:14 00:25 00:25 MCV 98 H RDW 14.6 H Seg Neutrophils % 34.2 L Lymphocytes % 57.9 H Sodium 135.8 L Chloride 97 L BUN 30 H Est GFR (Non-Af Amer) 55 L Glucose 445 H* Urine Glucose (UA) >=500 H Ur Leukocyte Esterase SMALL H Discharge - Discharge Clinical Impression: Hyperglycemia Abdominal pain Qualifiers: Abdominal location: unspecified location Qualified Code(s): R10.9 - Unspecified abdominal pain Condition: Good Disposition: HOME, SELF-CARE Additional Instructions: Lab work looking at your abdomen did not show any concerning findings. I suspect your pain is something called postherpetic neuralgia which is a pain that you get even after the shingles rash starts to resolve. I will place you on a medicine called gabapentin. Please take it as prescribed. The medicine may make you little bit sleepy. If you start to feel very sleepy or unwell after taking the medicine then you can stop taking it and follow-up closely with Dr. Arnold for reevaluation and other options of treatment. Please have a low threshold to return to ER if you have worsening pain, fevers, vomiting, or feel that you are worsening in any way. Please do not stop this medication suddenly if you have been on it for more than 5 days. If you have been on it more than 5 days you must be weaned off the medication. Prescriptions: Gabapentin [Neurontin 300 mg Capsule] 300 mg PO Q12 #30 capsule Referrals: ROME ARNOLD MD [Primary Care Provider] - Follow up tomorrow
[2018-12-10 02:12] VITALS: BP 137/82
== END 2018-12-10 02:26 | disposition home or self-care (01) ==
LOC: ER 23:36
DX: R10.9 Unspecified abdominal pain (principal); E11.65 Type 2 diabetes mellitus with hyperglycemia; R11.0 Nausea; I10 Essential (primary) hypertension; Z87.891 Personal history of nicotine dependence
CPT/HCPCS: 99284; 96374; 36415; 82962; 85025; 80048; 81001; 74022; J1885; J1815

== ENCOUNTER 2019-08-18 18:15 | Inpatient (IN) | payer MEDICARE, OTHER ==
[2019-08-18] MEDS ORDERED: ONDANSETRON 4 MG TAB.RAPDIS PO ONE (18:28)
[2019-08-18] MEDS ORDERED: NORMAL SALINE 1000 ML 1,000 ML IV ONE ×3 (18:29→21:50)
--- NOTE | 2019-08-18 18:31 | ER Document Report ---
ED Medical Screen (RME) - General Chief Complaint: Weakness Stated Complaint: WEAKNESS,SHORT OF BREATH Time Seen by Provider: 08/18/19 18:27 Primary Care Provider: CORA ROGER MD [Primary Care Provider] - Follow up as needed Notes: 68 y/o female with history of diabetes on insulin presents with generalized weakness, "shaking," nausea, and dyspnea. Pt states this has been going on all day and she has not eaten anything or given herself insulin today. Pt states she did take her glucophage. Accucheck in triage is 242. Pt states it got worse. Denies vomiting, chest pain, or fever. Pt is shaking in triage. I have greeted and performed a rapid initial assessment of this patient. A comprehensive ED assessment and evaluation of the patient, analysis of test results and completion of the medical decision making process with be conducted by additional ED providers. TRAVEL OUTSIDE OF THE [place] IN LAST 30 DAYS: No - Related Data Allergies/Adverse Reactions: Vsastgp-Xkc-Ovi Reductase Inhibitor Adverse Reaction (Verified 08/18/19 18:24) Myalgia Past Medical History - Past Medical History Cardiac Medical History: Reports: Hx Hypercholesterolemia, Hx Hypertension Denies: Hx DVT Pulmonary Medical History: Reports: Hx Bronchitis, Hx Pneumonia Neurological Medical History: Reports: Hx Migraine Endocrine Medical History: Reports: Hx Diabetes Mellitus Type 2 Renal/ Medical History: Denies: Hx Peritoneal Dialysis GI Medical History: Reports: Hx Colonoscopy, Hx Endoscopy Musculoskeltal Medical History: Reports Hx Arthritis Psychiatric Medical History: Denies: Hx Depression Past Surgical History: Reports: Hx Section - Immunizations Immunizations up to date: Yes Hx Diphtheria, Pertussis, Tetanus Vaccination: Yes Physical Exam - Vital signs Vitals: Temp Pulse Resp BP Pulse Ox 98.2 F 101 H 38 H 124/75 100 08/18/19 18:19 08/18/19 18:19 08/18/19 18:19 08/18/19 18:19 08/18/19 18:19 Course - Vital Signs Vital signs: Temp Pulse Resp BP Pulse Ox 98.2 F 101 H 38 H 124/75 100 08/18/19 18:19 08/18/19 18:19 08/18/19 18:19 08/18/19 18:19 08/18/19 18:19 Doctor's Discharge - Discharge Referrals: CORA ROGER MD [Primary Care Provider] - Follow up as needed
[2019-08-18] MEDS ORDERED: LORAZEPAM INJ 2 MG/1 ML VIAL IV ONE (18:50)
--- NOTE | 2019-08-18 18:59 | ER Document Report ---
ED General - General Chief Complaint: Near Syncope Stated Complaint: WEAKNESS,SHORT OF BREATH Time Seen by Provider: 08/18/19 18:27 Primary Care Provider: CORA ROGER MD [Primary Care Provider] - Follow up as needed TRAVEL OUTSIDE OF THE [place] IN LAST 30 DAYS: No - HPI Notes: Ms. Parham is a 68-year-old female followed by Dr. Roger with a history of hypertension and diabetes mellitus type 2 as well as a past history of pancreatitis who presents now with a chief complaint of general malaise and feeling as though she might pass out. Patient was participating in a zoroastrianism meeting and notes that she had been fasting since last night. She was speaking to the restoration when her mouth suddenly began to feel dry and she felt very lightheaded as though she was going to faint although she did not actually fall or faint. She also had a sensation her heart was racing. She denies chest pain or abdominal pain. She denies vomiting, diarrhea, fever or chills. She denies dysuria. States that she does feel "short winded". Non-smoker. No use of alcohol. History of allergy to statin drugs. Denies any known history of cardiac disease. Denies any known history of thromboembolic disease. - Related Data Allergies/Adverse Reactions: Tgmxruz-Jsg-Enx Reductase Inhibitor Adverse Reaction (Verified 08/18/19 18:24) Myalgia Past Medical History - General Information source: Parent, Relative - Social History Smoking Status: Never Smoker Chew tobacco use (# tins/day): No Frequency of alcohol use: None Drug Abuse: None Family History: Arthritis, DM, Hyperlipidemia, Hypertension, Malignancy Patient has suicidal ideation: No Patient has homicidal ideation: No - Past Medical History Cardiac Medical History: Reports: Hx Hypercholesterolemia, Hx Hypertension Denies: Hx DVT Pulmonary Medical History: Reports: Hx Bronchitis, Hx Pneumonia Neurological Medical History: Reports: Hx Migraine Endocrine Medical History: Reports: Hx Diabetes Mellitus Type 2 Renal/ Medical History: Denies: Hx Peritoneal Dialysis GI Medical History: Reports: Hx Colonoscopy, Hx Endoscopy Musculoskeletal Medical History: Reports Hx Arthritis Psychiatric Medical History: Denies: Hx Depression Past Surgical History: Reports: Hx Section - Immunizations Immunizations up to date: Yes Hx Diphtheria, Pertussis, Tetanus Vaccination: Yes Review of Systems - Review of Systems Notes: Constitutional: Negative for fever. HENT: Negative for sore throat. Eyes: Blurring of vision. Cardiovascular: Negative for chest pain. Respiratory: As per HPI. Gastrointestinal: Negative for abdominal pain, vomiting or diarrhea. Genitourinary: Negative for dysuria. Musculoskeletal: Negative for back pain. Skin: Negative for rash. Neurological: Negative for headaches, focal weakness or numbness. 10 point ROS negative except as marked above and in HPI. Physical Exam - Vital signs Vitals: Temp Pulse Resp BP Pulse Ox 98.2 F 101 H 38 H 124/75 100 08/18/19 18:19 08/18/19 18:19 08/18/19 18:19 08/18/19 18:19 08/18/19 18:19 - Notes Notes: GENERAL: Elderly female who appears very anxious and hyperventilating slightly. SKIN: Warm and dry. Good turgor no rashes. HEAD: Normocephalic atraumatic. EYES: PERRLA. EOMI. Conjunctivae and sclerae clear. EARS: CANALS AND TMS CLEAR. NOSE: CLEAR. MOUTH: Moist mucosa. Good dentition. No stridor or edema. No drooling. NECK: Supple. No masses or thyromegaly. No adenopathy. Carotids 2+ without bruits. No JVD. BACK: Symmetrical without tenderness. CHEST: Respirations unlabored. Breath sounds clear and symmetrical. HEART: Regular rhythm. No murmur gallop or rub. ABDOMEN: Soft nontender without masses, organomegaly or rebound. Bowel sounds normally active. No bruits. GENITALIA: Deferred. EXTREMITIES: No edema. No calf tenderness. Cap refill less than 1.5 seconds. Dorsalis pedis and posterior tibial pulses 3+ and symmetrical. NEUROLOGICAL: GCS 15. Alert and oriented x3. Fluent speech. Cranial nerves II through XII intact. Sensorimotor and cerebellar normal. Normal tone. PSYCHIATRIC: Very anxious. Course - Re-evaluation Re-evalutation: 08/19/19 00:50 Patient was very anxious and hyperventilating when she came in and also appeared to be mildly dehydrated. We gave her some IV hydration. She continued to hyperventilate and was panicking and complaining of tingling of hands and face. I subsequently gave her small amount of IV Ativan to control his symptoms. Patient became sedated to the point we had to put her on some low-flow oxygen briefly. She had no focal findings to suggest CVA but family was concerned about this is a possibility. We obtained a noncontrast head CT which was read as negative by the radiologist. EKG showed no ST changes. She did not have any complaint of chest pain. She has a very minimal elevation of her serum lipase level which is been a chronic finding. Her chemistry profile is otherwise remar kable only for glucose of 220 with known history of type 2 diabetes as well as some mild prerenal azotemia. CBC normal. Troponin normal. D-dimer was not elevated. Chest x-ray normal. Urinalysis normal. Rapid influenza screen negative. Additional IV normal saline was administered. We were able to ultimately wean her off the oxygen she maintained normal O2 saturation. Her sedation gradually resolved we tried to get her up and walk her in the room she was unsteady on her feet. There was no lateralization seen on neurologic exam. She tolerated p.o. fluids without difficulty. Case was discussed with her attending physician Dr. Roger who has accepted the patient for observation admission to telemetry. 08/19/19 00:53 - Vital Signs Vital signs: Temp Pulse Resp BP Pulse Ox 98.2 F 101 H 13 100/66 100 08/18/19 20:20 08/18/19 18:19 08/18/19 22:01 08/18/19 22:01 08/18/19 22:01 - Laboratory Result Diagrams: 08/18/19 19:00 08/18/19 19:00 Laboratory results interpreted by me: 08/18/19 08/18/19 08/18/19 18:28 19:00 19:00 BUN 26 H Est GFR ( Amer) 53 L Est GFR (MDRD) Non-Af 44 L Glucose 232 H POC Glucose 242 H Calcium 10.3 H Lipase 309.4 H Urine Glucose (UA) Leukocyte Esterase Rfl 08/18/19 08/18/19 20:00 21:33 BUN Est GFR ( Amer) Est GFR (MDRD) Non-Af Glucose POC Glucose 140 H Calcium Lipase Urine Glucose (UA) >=500 H Leukocyte Esterase Rfl TRACE H - EKG Interpretation by Me Additional EKG results interpreted by me: 08/18/19 19:01 Twelve-lead EKG from 1857 hrs. is reviewed contemporaneously by me showing sinus tachycardia 101. [place] is normal at 22 degrees. Intervals are normal. She has no acute ST-T wave changes. Discharge - Discharge Clinical Impression: Dehydration Condition: Good Disposition: ADMITTED OBSERVATION Admitting Provider: Katrina Unit Admitted: Telemetry Referrals: CORA ROGER MD [Primary Care Provider] - Follow up as needed
[2019-08-18 19:19] LABS: ABSOLUTE EOSINOPHILS # (AUTO) 0.1 10^3/uL (0.0-0.6); ABSOLUTE LYMPHOCYTES (AUTO) 2.1 10^3/uL (0.5-4.7); ABSOLUTE MONOCYTES (AUTO) 0.4 10^3/uL (0.1-1.4); ABSOLUTE NEUT (AUTO) 3.3 10^3/uL (1.7-8.2); BASOPHILS % (AUTO) 0.3 % (0-2); EOSINOPHILS % (AUTO) 1.1 % (0-6); HEMATOCRIT 38.6 % (36.0-47.0); HEMOGLOBIN 12.9 g/dL (12.0-15.5); LYMPHOCYTES % (AUTO) 35.7 % (13-45); MEAN CORPUSCULAR HEMOGLOBIN 31.9 pg (27.0-33.4); MEAN CORPUSCULAR HGB CONC 33.4 g/dL (32.0-36.0); MEAN CORPUSCULAR VOLUME 96 fl (80-97); MONOCYTES % (AUTO) 7.3 % (3-13); PLATELET COUNT 233 10^3/uL (150-450); RED BLOOD COUNT 4.04 10^6/uL (3.72-5.28); SEGMENTED NEUTROPHILS % (AUTO) 55.6 % (42-78); TOTAL CELLS COUNTED % (AUTO) 100 %; WHITE BLOOD COUNT 5.9 10^3/uL (4.0-10.5)
[2019-08-18 19:26] LABS: ALBUMIN 4.4 g/dL (3.5-5.0); ALKALINE PHOSPHATASE 82 U/L (38-126); ANION GAP 12 (5-19); ASPARTATE AMINO TRANSFERASE 21 U/L (14-36); BILIRUBIN,TOTAL 0.6 mg/dL (0.2-1.3); BLOOD UREA NITROGEN 26 mg/dL (7-20); CALCIUM 10.3 mg/dL (8.4-10.2); CARBON DIOXIDE 26 mmol/L (22-30); CHLORIDE 99 mmol/L (98-107); GLUCOSE 232 mg/dL (75-110); TOTAL PROTEIN 7.6 g/dL (6.3-8.2)
[2019-08-18 19:38] LABS: NT PRO BNP 24 pg/mL (<125)
[2019-08-18 19:43] LABS: TROPONIN I < 0.012 ng/mL
--- NOTE | 2019-08-18 20:00 | RADIOLOGY REPORT (SQ) ---
EXAM DESCRIPTION: CT HEAD WITHOUT COMPLETED DATE/TIME: 08/18/2019 7:49 pm REASON FOR STUDY: ams COMPARISON: 02/27/2017 TECHNIQUE: Axial images acquired through the brain without intravenous contrast. Images reviewed wit h bone, brain and subdural windows. Images stored on PACS. All CT scanners at this facility use dose modulation, iterative reconstruction, and/or weight based d osing when appropriate to reduce radiation dose to as low as reasonably achievable (ALARA). [facility]: Dose Right [facility]: CareDose [facility]: Dose Right [facility]: Teradose 4D [facility]: Smart Incujector RADIATION DOSE: CT Rad equipment meets quality standard of care and radiation dose reduction techniq ues were employed. CTDIvol: 53.2 mGy. DLP: 991 mGy-cm.. LIMITATIONS: None. FINDINGS: VENTRICLES: Normal size and contour. CEREBRUM: No masses. No hemorrhage. No midline shift. Age appropriate white matter. No evidence for a cute infarction. CEREBELLUM: No masses. No hemorrhage. No alteration of density. No evidence for acute infarction. EXTRA-AXIAL SPACES: No fluid collections. ORBITS AND GLOBE: No intra- or extraconal masses. Normal contour of globe without masses. CALVARIUM: No fracture. PARANASAL SINUSES: No fluid or mucosal thickening. SOFT TISSUES: No mass or hematoma. OTHER: No other significant finding. IMPRESSION: NO ACUTE INTRACRANIAL FINDINGS. EVIDENCE OF ACUTE STROKE: NO. TECHNICAL DOCUMENTATION: JOB ID: [id number] [place]-72 Quality ID # [id number]: Final reports with documentation of one or more dose reduction techniques (e.g., Au tomated exposure control, adjustment of the mA and/or kV according to patient size, use of iterative reconstruction technique) 2010 [employer]- All Rights Reserved Reading location - IP/workstation name: [facility] in [place]
--- NOTE | 2019-08-18 20:03 | RADIOLOGY REPORT (SQ) ---
EXAM DESCRIPTION: CHEST SINGLE VIEW COMPLETED DATE/TIME: 08/18/2019 7:53 pm REASON FOR STUDY: dyspnea COMPARISON: 06/02/2016 TECHNIQUE: Single frontal radiographic view of the chest acquired. NUMBER OF VIEWS: One view. LIMITATIONS: None. FINDINGS: LUNGS AND PLEURA: No pneumothorax. No consolidation or pleural effusion. MEDIASTINUM AND HILAR STRUCTURES: Stable. HEART AND VASCULAR STRUCTURES: Stable. BONES: No acute findings. HARDWARE: None in the chest. OTHER: No other significant finding. IMPRESSION: NO ACUTE FINDINGS. TECHNICAL DOCUMENTATION: JOB ID: [id number] [place]-72 2010 [employer]- All Rights Reserved Reading location - IP/workstation name: [email or web address]
[2019-08-18 20:14] LABS: APPEARANCE,URINE CLEAR; BILIRUBIN,URINE NEGATIVE (NEGATIVE); COLOR,URINE STRAW; GLUCOSE, URINE >=500 mg/dL (NEGATIVE); KETONES,URINE NEGATIVE (NEGATIVE); PROTEIN,URINE NEGATIVE (NEGATIVE); URINE SPECIFIC GRAVITY 1.006; UROBILINOGEN,URINE NEGATIVE mg/dL (<2.0)
[2019-08-18 20:42] LABS: A TYPE INFLUENZA AG NEGATIVE (NEGATIVE); B INFLUENZA AG NEGATIVE (NEGATIVE)
--- NOTE | 2019-08-18 21:17 | EKG REPORT ---
SEVERITY:- OTHERWISE NORMAL ECG - SINUS TACHYCARDIA : Confirmed by: John Shaw MD 18-Aug-2019 21:16:32
[2019-08-18] MEDS ORDERED: ACETAMINOPHEN 325 MG TABLET PO ONE (23:38)
[2019-08-19] MEDS ORDERED: DEXTROSE 50%-WATER SYRINGE 12.5 GM/25 ML DOSE IV PRN (06:30)
[2019-08-19] MEDS ORDERED: DEXTROSE 40% GEL 15 GM TUBE PO PRN (06:30)
[2019-08-19] MEDS ORDERED: GLUCAGON,HUMAN RECOMB 1 MG INJ IM PRN (06:30)
[2019-08-19] MEDS ORDERED: DEXTROSE 50%-WATER SYRINGE 25 GM/50 ML DOSE IV PRN (06:30)
[2019-08-19] MEDS ORDERED: DEXTROSE 40% GEL 15 GM TUBE X 2 PO PRN (06:30)
[2019-08-19] MEDS: NORMAL SALINE 1000 ML 1,000 ML IV PRN ×3 (06:41→18:48)
[2019-08-19] MEDS: INSULIN LISPRO 100 UNIT/ML 3 ML VIAL SUBCUT SCH ×4 (08:40→21:54)
[2019-08-19] MEDS: ACETAMINOPHEN 325 MG TABLET PO PRN (10:08)
[2019-08-19 10:59] LABS: ANION GAP 7 (5-19); BLOOD UREA NITROGEN 17 mg/dL (7-20); CALCIUM 9.2 mg/dL (8.4-10.2); CARBON DIOXIDE 28 mmol/L (22-30); CHLORIDE 106 mmol/L (98-107); GLUCOSE 115 mg/dL (75-110); POTASSIUM 4.1 mmol/L (3.6-5.0)
--- NOTE | 2019-08-19 16:12 | PDOC H&P ---
History of Present Illness Admission Date/PCP: 08/19/19 01:20 CORA ROGER Patient complains of: Weakness, Shortness of breath History of Present Illness: REJI RAMIREZ is a 68 year old female patient known to my practice who presented to the ED with complain of weakness, shortness of breath, and dizziness with near syncope while she was attending a religious service. She reported associated palpitation, dryness in her mouth, and participating in a sabianism fasting process prior to onset of her symptoms. She denied any associated chest pain, coughing, fever or chills. No nausea or vomiting. She reported lower abdominal pain, constipation, and urinary frequency during my bedside evaluation. She denied any dysuria, flank pain or hematuria. her initial evaluation in the ED was unrevealing except for dry oral mucosa , elevated BUN, hyperglycemia, and elevated serum lipase level. Her physical examination revealed dry mucosa. She was advised hospitalization for further evaluation and management. Her morbidities are as listed below. Past Medical History Cardiac Medical History: Reports: Hyperlipidema, Hypertension Denies: DVT Pulmonary Medical History: Reports: Bronchitis, Pneumonia Neurological Medical History: Reports: Migraine Endocrine Medical History: Reports: Diabetes Mellitus Type 2 Musculoskeltal Medical History: Reports: Arthritis Psychiatric Medical History: Denies: Depression Past Surgical History Past Surgical History: Reports: Section Social History Smoking Status: Never Smoker Electronic Cigarette use?: No Frequency of Alcohol Use: None Hx Recreational Drug Use: No Drugs: None Hx Prescription Drug Abuse: No - Advance Directive Resuscitation Status: Full Code Family History Family History: Arthritis, DM, Hyperlipidemia, Hypertension, Malignancy Parental Family History Reviewed: Yes Children Family History Reviewed: Yes Sibling(s) Family History Reviewed.: Yes Medication/Allergy Home Medications: Aspirin [Ecotrin 81 mg EC Tablet] 81 mg PO DAILY 08/19/19 Empagliflozin/Linagliptin [Glyxambi 10 mg-5 mg Tablet] 1 each PO DAILY MDD JUST STARTED THIS WEEK 08/19/19 Gabapentin [Neurontin 300 mg Capsule] 600 mg PO Q8 08/19/19 Glyburide/Metformin HCl [Glyburide-Metformin 5-500 mg] 2 tab PO BIDBS 08/19/19 Insulin Degludec [Tresiba Flextouch U-100] 0 units SUBCUT ASDIR PRN MDD NOT STARTED/ JUST PRESCRIBED 08/19/19 Olmesartan/Amlodipin/Hcthiazid [Itmwuzu-Qxboku-Gtbc 40-10-12.5] 1 tab PO DAILY 08/19/19 Allergies/Adverse Reactions: Ukgsyno-Aey-Nyb Reductase Inhibitor Adverse Reaction (Verified 08/18/19 18:24) Myalgia Review of Systems Constitutional: ABSENT: chills, fever(s), headache(s), weight gain, weight loss Eyes: ABSENT: visual disturbances Ears: ABSENT: hearing changes Cardiovascular: ABSENT: chest pain, dyspnea on exertion, edema, orthropnea, palpitations Respiratory: ABSENT: cough, hemoptysis Gastrointestinal: ABSENT: abdominal pain, constipation, diarrhea, hematemesis, hematochezia, nausea, vomiting Genitourinary: ABSENT: dysuria, hematuria Musculoskeletal: ABSENT: joint swelling Integumentary: ABSENT: rash, wounds Neurological: PRESENT: dizziness. ABSENT: abnormal gait, abnormal speech, confusion, focal weakness, syncope Psychiatric: ABSENT: anxiety, depression, homidical ideation, suicidal ideation Endocrine: ABSENT: cold intolerance, heat intolerance, menstrual abnormalities, polydipsia, polyuria Hematologic/Lymphatic: ABSENT: easy bleeding, easy bruising, lymphadenopathy Physical Exam Vital Signs: Temp Pulse Resp BP Pulse Ox 97.9 F 84 18 115/71 100 08/19/19 05:04 08/19/19 07:00 08/19/19 05:04 08/19/19 05:04 08/19/19 05:04 Intake & Output 08/18/19 08/19/19 08/20/19 06:59 06:59 06:59 Intake Total 3000 Output Total 600 Balance 2400 Weight 86.6 kg General appearance: PRESENT: no acute distress, obese Head exam: PRESENT: atraumatic, normocephalic Eye exam: PRESENT: conjunctiva pink, EOMI, PERRLA. ABSENT: scleral icterus Ear exam: PRESENT: normal external ear exam Mouth exam: PRESENT: moist Neck exam: PRESENT: full ROM. ABSENT: carotid bruit, JVD, lymphadenopathy, thyromegaly Respiratory exam: PRESENT: clear to auscultation lety Cardiovascular exam: PRESENT: RRR. ABSENT: diastolic murmur, rubs, systolic murmur Vascular exam: ABSENT: pallor GI/Abdominal exam: PRESENT: normal bowel sounds, soft, tenderness - bilateral lower quadrant to deep palpation. ABSENT: distended, guarding, mass, organolmegaly, rebound Rectal exam: PRESENT: deferred Extremities exam: ABSENT: pedal edema Musculoskeletal exam: PRESENT: full ROM Neurological exam: PRESENT: alert, awake, oriented to person, oriented to place, oriented to time, oriented to situation, CN II-XII grossly intact. ABSENT: motor sensory deficit Psychiatric exam: PRESENT: appropriate affect, normal mood. ABSENT: homicidal ideation, suicidal ideation Skin exam: PRESENT: dry, warm Results Laboratory Results: 08/18/19 19:00 08/18/19 19:00 08/18/19 08/18/19 08/18/19 19:00 19:00 19:00 WBC 5.9 RBC 4.04 Hgb 12.9 Hct 38.6 MCV 96 MCH 31.9 MCHC 33.4 RDW 14.0 Plt Count 233 Seg Neutrophils % 55.6 Sodium 137.1 Potassium 4.0 Chloride 99 Carbon Dioxide 26 Anion Gap 12 BUN 26 H Creatinine 1.22 Est GFR ( Amer) 53 L Glucose 232 H Calcium 10.3 H Total Bilirubin 0.6 AST 21 Alkaline Phosphatase 82 Total Protein 7.6 Albumin 4.4 Lipase 309.4 H Urine Color Urine Appearance Urine pH Ur Specific [place] Urine Protein Urine Glucose (UA) Urine Ketones Urine Blood Urine RBC (Auto) 08/18/19 20:00 WBC RBC Hgb Hct MCV MCH MCHC RDW Plt Count Seg Neutrophils % Sodium Potassium Chloride Carbon Dioxide Anion Gap BUN Creatinine Est GFR ( Amer) Glucose Calcium Total Bilirubin AST Alkaline Phosphatase Total Protein Albumin Lipase Urine Color STRAW Urine Appearance CLEAR Urine pH 6.0 Ur Specific [place] 1.006 Urine Protein NEGATIVE Urine Glucose (UA) >=500 H Urine Ketones NEGATIVE Urine Blood NEGATIVE Urine RBC (Auto) 1 08/18/19 19:00 Troponin I < 0.012 NT-Pro-B Natriuret Pep 24 Impressions: Head CT 08/18/19 19:02 IMPRESSION: NO ACUTE INTRACRANIAL FINDINGS. EVIDENCE OF ACUTE STROKE: NO. Chest X-Ray 08/18/19 19:05 IMPRESSION: NO ACUTE FINDINGS. Assessment & Plan - Diagnosis (1) Dehydration Is this a current diagnosis for this admission?: Yes Plan: See attending physician orders for details about care plan. (2) Increased urinary frequency Is this a current diagnosis for this admission?: Yes Plan: See attending physician orders for details about care plan. (3) Constipation Qualifiers: Constipation type: slow transit constipation Qualified Code(s): K59.01 - Slow transit constipation Is this a current diagnosis for this admission?: Yes Plan: See attending physician orders for details about care plan. (4) Abdominal pain, bilateral lower quadrant Is this a current diagnosis for this admission?: Yes Plan: See attending physician orders for details about care plan. (5) Uncontrolled diabetes mellitus Qualifiers: Diabetes mellitus type: type 2 Is this a current diagnosis for this admission?: Yes Plan: See attending physician orders for details about care plan. (6) HTN (hypertension) Qualifiers: Hypertension type: essential hypertension Qualified Code(s): I10 - Essential (primary) hypertension Is this a current diagnosis for this admission?: Yes Plan: See attending physician orders for details about care plan. (7) HLD (hyperlipidemia) Qualifiers: Hyperlipidemia type: unspecified Qualified Code(s): E78.5 - Hyperlipidemia, unspecified Is this a current diagnosis for this admission?: Yes Plan: See attending physician orders for details about care plan. - Time Time Spent: 50 to 70 Minutes Medications reviewed and adjusted accordingly: Yes Anticipated discharge: Home with Homehealth Within: Other - Inpatient Certification Based on my medical assessment, after consideration of the patient's comorbidities, presenting symptoms, or acuity I expect that the services needed warrant INPATIENT care.: Yes I certify that my determination is in accordance with my understanding of Medicare's requirements for reasonable and necessary INPATIENT services [42 CFR 412.3e].: Yes Medical Necessity: Significant Comorbidiites Make Outpatient Treatment Too Risky, Need Close Monitoring Due to Risk of Patient Decompensation, Need For IV Fluids, Need For Continuous Telemetry Monitoring, Risk of Complication if Not Cared For in Hospital, Risk of Diagnosis Which Will Require Inpatient Eval/Care/Monitoring Post Hospital Care: D/C Bi Report Developer Documentation - Plan Summary Plan Summary: See attending physician orders for details about care plan.
[2019-08-19] MEDS ORDERED: METFORMIN HCL PO SCH (17:00)
[2019-08-19] MEDS ORDERED: GLYBURIDE PO SCH (17:00)
--- NOTE | 2019-08-19 17:45 | RADIOLOGY REPORT (SQ) ---
EXAM DESCRIPTION: ACUTE ABDOMEN SERIES COMPLETED DATE/TIME: 08/19/2019 5:15 pm REASON FOR STUDY: Abdoiminal pain, Constipation COMPARISON: AP chest 08/18/2019 Three-way abdomen series 12/10/2018 NUMBER OF VIEWS: Three views. TECHNIQUE: Frontal chest, supine abdomen and upright abdomen radiographic images acquired. LIMITATIONS: None. FINDINGS: CHEST: Lungs clear of infiltrates. Cardiac silhouette size, abby unremarkable. No acute bony findings. FREE AIR: None. No abnormal gas collections. BOWEL GAS PATTERN: Nonobstructive pattern. No dilated loops or air fluid levels. Moderate stool thro ughout the colon. CALCIFICATIONS: No suspicious calcifications. HARDWARE: Surgical clips in the pelvis. SOFT TISSUES: No gross mass or suggestion of organomegaly. BONES: No acute fracture. No worrisome bone lesions. OTHER: No other significant finding. IMPRESSION: Moderate constipation TECHNICAL DOCUMENTATION: JOB ID: [id number] [employer]- All Rights Reserved Reading location - IP/workstation name: [email or web address]
[2019-08-19] MEDS: CEFTRIAXONE 1 GM/D5W RTU 1 GM/50 ML RTUPB IV SCH (18:42)
[2019-08-19] MEDS: GLYBURIDE 5 MG TABLET PO SCH (18:43)
[2019-08-19] MEDS: METFORMIN HCL 500 MG TABLET PO SCH (18:43)
[2019-08-19] MEDS: GABAPENTIN 300 MG CAPSULE PO SCH (21:54)
[2019-08-20] MEDS: GABAPENTIN 300 MG CAPSULE PO SCH ×3 (05:07→21:37)
[2019-08-20] MEDS: NORMAL SALINE 1000 ML 1,000 ML IV PRN ×3 (05:07→19:08)
[2019-08-20] MEDS: INSULIN LISPRO 100 UNIT/ML 3 ML VIAL SUBCUT SCH ×4 (09:16→22:00)
[2019-08-20] MEDS: GLYBURIDE 5 MG TABLET PO SCH ×2 (09:26→18:12)
[2019-08-20] MEDS: CEFTRIAXONE 1 GM/D5W RTU 1 GM/50 ML RTUPB IV SCH (09:26)
[2019-08-20] MEDS: ASPIRIN 81 MG TABLET, ENT COATED PO SCH (09:26)
[2019-08-20] MEDS: LOSARTAN POTASSIUM 50 MG TABLET PO SCH (09:26)
[2019-08-20] MEDS: AMLODIPINE BESYLATE 10 MG TABLET PO SCH (09:26)
[2019-08-20] MEDS: METFORMIN HCL 500 MG TABLET PO SCH ×2 (09:27→18:13)
[2019-08-20] MEDS ORDERED: EMPAGLIFLOZIN PO SCH (10:00)
[2019-08-20] MEDS ORDERED: LINAGLIPTIN PO SCH (10:00)
[2019-08-20] MEDS: ACETAMINOPHEN 325 MG TABLET PO PRN (10:32)
--- NOTE | 2019-08-20 18:50 | PDOC PROGRESS REPORT ---
Subjective Progress Note for:: 08/20/19 Subjective:: Patient reported no bowel movement for four days. No nausea or vomiting. Expressed abdominal pain in region of her shingle rash lesion. No chest pain or difficulty with breathing. No fever or chills. Reason For Visit: DEHYDRATION WITH PALPITATION AND NEAR SYNCOPY; Physical Exam Vital Signs: Temp Pulse Resp BP Pulse Ox 97.9 F 77 18 122/82 100 08/20/19 16:50 08/20/19 16:50 08/20/19 16:50 08/20/19 16:50 08/20/19 16:50 Intake & Output 08/19/19 08/20/19 08/21/19 06:59 06:59 06:59 Intake Total 3000 3249 1530 Output Total 600 3600 2100 Balance 2400 351 570 Weight 86.6 kg 86.6 kg General appearance: PRESENT: no acute distress, obese Head exam: PRESENT: atraumatic, normocephalic Eye exam: PRESENT: conjunctiva pink. ABSENT: scleral icterus Ear exam: PRESENT: normal external ear exam Mouth exam: PRESENT: moist Respiratory exam: PRESENT: clear to auscultation lety Cardiovascular exam: PRESENT: RRR. ABSENT: diastolic murmur, rubs, systolic murmur Vascular exam: ABSENT: pallor GI/Abdominal exam: PRESENT: normal bowel sounds, soft. ABSENT: distended, guarding, mass, organolmegaly, rebound, tenderness Extremities exam: ABSENT: pedal edema Neurological exam: PRESENT: alert, awake, oriented to person, oriented to place, oriented to time, oriented to situation, CN II-XII grossly intact. ABSENT: motor sensory deficit Psychiatric exam: PRESENT: appropriate affect, normal mood. ABSENT: homicidal ideation, suicidal ideation Skin exam: PRESENT: dry, warm Results Laboratory Results: 08/18/19 19:00 08/19/19 10:14 08/18/19 20:00 Clean Catch Midstream Urine Culture - Final Mixed Urogenital Dominique 08/18/19 19:00 Troponin I < 0.012 NT-Pro-B Natriuret Pep 24 Impressions: Head CT 08/18/19 19:02 IMPRESSION: NO ACUTE INTRACRANIAL FINDINGS. EVIDENCE OF ACUTE STROKE: NO. Chest X-Ray 08/18/19 19:05 IMPRESSION: NO ACUTE FINDINGS. Acute Abdomen Series 08/19/19 00:00 IMPRESSION: Moderate constipation Assessment & Plan - Diagnosis (1) Dehydration Is this a current diagnosis for this admission?: Yes (2) Increased urinary frequency Is this a current diagnosis for this admission?: Yes (3) Constipation Qualifiers: Constipation type: slow transit constipation Qualified Code(s): K59.01 - Slow transit constipation Is this a current diagnosis for this admission?: Yes (4) Abdominal pain, bilateral lower quadrant Is this a current diagnosis for this admission?: Yes (5) Uncontrolled diabetes mellitus Qualifiers: Diabetes mellitus type: type 2 Is this a current diagnosis for this admission?: Yes (6) HTN (hypertension) Qualifiers: Hypertension type: essential hypertension Qualified Code(s): I10 - Essential (primary) hypertension Is this a current diagnosis for this admission?: Yes (7) HLD (hyperlipidemia) Qualifiers: Hyperlipidemia type: unspecified Qualified Code(s): E78.5 - Hyperlipidemia, unspecified Is this a current diagnosis for this admission?: Yes (8) Constipation by delayed colonic transit Is this a current diagnosis for this admission?: Yes Plan: Give Dulcolax 10 mg PA x 1 dose tonight. Start on Colace 200 mg po qhs. - Time Time Spent with patient: 25-34 minutes Level of Care: IMCU Anticipated discharge: Home Within: Other - Inpatient Certification Based on my medical assessment, after consideration of the patient's comorbidities, presenting symptoms, or acuity I expect that the services needed warrant INPATIENT care.: Yes I certify that my determination is in accordance with my understanding of Medicare's requirements for reasonable and necessary INPATIENT services [42 CFR 412.3e].: Yes Medical Necessity: Significant Comorbidiites Make Outpatient Treatment Too Risky, Need Close Monitoring Due to Risk of Patient Decompensation, Need For IV Fluids, Need For Continuous Telemetry Monitoring, Need for IV Antibiotics, Risk of Complication if Not Cared For in Hospital, Risk of Diagnosis Which Will Require Inpatient Eval/Care/Monitoring Post Hospital Care: D/C Nurse Discharge Documentation - Plan Summary Plan Summary: See attending physician orders for details about care plan.
[2019-08-20] MEDS ORDERED: BISACODYL 10 MG SUPP.RECT PR ONE ×2 (19:30→22:00)
[2019-08-20] MEDS: DOCUSATE SODIUM 100 MG CAPSULE PO SCH (21:38)
[2019-08-21] MEDS: GABAPENTIN 300 MG CAPSULE PO SCH ×3 (06:17→22:11)
[2019-08-21] MEDS: METFORMIN HCL 500 MG TABLET PO SCH ×2 (09:32→18:31)
[2019-08-21] MEDS: CEFTRIAXONE 1 GM/D5W RTU 1 GM/50 ML RTUPB IV SCH (09:32)
[2019-08-21] MEDS: ASPIRIN 81 MG TABLET, ENT COATED PO SCH (09:33)
[2019-08-21] MEDS: GLYBURIDE 5 MG TABLET PO SCH ×2 (09:33→18:30)
[2019-08-21] MEDS: AMLODIPINE BESYLATE 10 MG TABLET PO SCH (09:33)
[2019-08-21] MEDS: LOSARTAN POTASSIUM 50 MG TABLET PO SCH (09:33)
[2019-08-21] MEDS: INSULIN LISPRO 100 UNIT/ML 3 ML VIAL SUBCUT SCH ×4 (09:34→22:11)
[2019-08-21] MEDS: ACETAMINOPHEN 325 MG TABLET PO PRN (11:22)
[2019-08-21] MEDS: NORMAL SALINE 1000 ML 1,000 ML IV PRN (18:33)
--- NOTE | 2019-08-21 18:48 | PDOC PROGRESS REPORT ---
Subjective Progress Note for:: 08/21/19 Subjective:: Nursing and staff reported episodes of SOB with exertion and associated light headedness with postural changes. Patient reported feeling weak. No chest pain, palpitation, nausea, or vomiting. P.O intake remain satisfactory. No fever or chills. Reason For Visit: DEHYDRATION WITH PALPITATION, NEAR SYNCOPE Physical Exam Vital Signs: Temp Pulse Resp BP Pulse Ox 97.8 F 70 16 132/77 H 100 08/21/19 17:08 08/21/19 17:08 08/21/19 17:08 08/21/19 17:08 08/21/19 17:08 Intake & Output 08/20/19 08/21/19 08/22/19 06:59 06:59 06:59 Intake Total 3249 2222 1050 Output Total 3600 4400 Balance -351 -2178 1050 Weight 86.6 kg 88.1 kg Physical Exam: General appearance: PRESENT: no acute distress, obese Head exam: PRESENT: atraumatic, normocephalic Eye exam: PRESENT: conjunctiva pink. ABSENT: pallor, scleral icterus Ear exam: PRESENT: normal external ear exam Mouth exam: PRESENT: moist Respiratory exam: PRESENT: clear to auscultation lety Cardiovascular exam: PRESENT: RRR. ABSENT: diastolic murmur, rubs, systolic murmur GI/Abdominal exam: PRESENT: normal bowel sounds, soft. ABSENT: distended, guarding, mass, organomegaly, rebound, tenderness Extremities exam: ABSENT: pedal edema Neurological exam: PRESENT: alert, awake, oriented to person, oriented to place, oriented to time, oriented to situation, CN II-XII grossly intact. ABSENT: motor sensory deficit Psychiatric exam: PRESENT: appropriate affect, normal mood. ABSENT: homicidal ideation, suicidal ideation Skin exam: PRESENT: dry, warm Results Laboratory Results: 08/18/19 19:00 08/19/19 10:14 08/18/19 19:00 Troponin I < 0.012 NT-Pro-B Natriuret Pep 24 Impressions: Head CT 08/18/19 19:02 IMPRESSION: NO ACUTE INTRACRANIAL FINDINGS. EVIDENCE OF ACUTE STROKE: NO. Chest X-Ray 08/18/19 19:05 IMPRESSION: NO ACUTE FINDINGS. Acute Abdomen Series 08/19/19 00:00 IMPRESSION: Moderate constipation Assessment & Plan - Diagnosis (1) Dehydration Is this a current diagnosis for this admission?: Yes (2) Increased urinary frequency Is this a current diagnosis for this admission?: Yes (3) Constipation Qualifiers: Constipation type: slow transit constipation Qualified Code(s): K59.01 - Slow transit constipation Is this a current diagnosis for this admission?: Yes (4) Abdominal pain, bilateral lower quadrant Is this a current diagnosis for this admission?: Yes (5) Uncontrolled diabetes mellitus Qualifiers: Diabetes mellitus type: type 2 Is this a current diagnosis for this admission?: Yes (6) HTN (hypertension) Qualifiers: Hypertension type: essential hypertension Qualified Code(s): I10 - E ssential (primary) hypertension Is this a current diagnosis for this admission?: Yes (7) HLD (hyperlipidemia) Qualifiers: Hyperlipidemia type: unspecified Qualified Code(s): E78.5 - Hyperlipidemia, unspecified Is this a current diagnosis for this admission?: Yes (8) Constipation by delayed colonic transit Is this a current diagnosis for this admission?: Yes - Time Time Spent with patient: 25-34 minutes Level of Care: IMCU Medications reviewed and adjusted accordingly: Yes Anticipated discharge: Home with Homehealth Within: Other - Inpatient Certification Based on my medical assessment, after consideration of the patient's comorbidities, presenting symptoms, or acuity I expect that the services needed warrant INPATIENT care.: Yes I certify that my determination is in accordance with my understanding of Medicare's requirements for reasonable and necessary INPATIENT services [42 CFR 412.3e].: Yes Medical Necessity: Significant Comorbidiites Make Outpatient Treatment Too Risky, Need Close Monitoring Due to Risk of Patient Decompensation, Need For IV Fluids, Need For Continuous Telemetry Monitoring, Need for IV Antibiotics, Risk of Complication if Not Cared For in Hospital, Risk of Diagnosis Which Will Require Inpatient Eval/Care/Monitoring Post Hospital Care: D/C Veterinary Medicine Teacher Documentation - Plan Summary Plan Summary: continue all current medication management. PT evaluation. Obtain CBC with diff, CMP in AM
[2019-08-21] MEDS: DOCUSATE SODIUM 100 MG CAPSULE PO SCH (22:11)
[2019-08-22] MEDS: ACETAMINOPHEN 325 MG TABLET PO PRN ×2 (03:38→17:52)
[2019-08-22] MEDS: GABAPENTIN 300 MG CAPSULE PO SCH ×3 (05:30→22:16)
[2019-08-22 06:18] LABS: ALBUMIN 3.7 g/dL (3.5-5.0); ALKALINE PHOSPHATASE 75 U/L (38-126); ANION GAP 8 (5-19); ASPARTATE AMINO TRANSFERASE 28 U/L (14-36); BILIRUBIN,DIRECT 0.3 mg/dL (0.0-0.4); BILIRUBIN,TOTAL 0.4 mg/dL (0.2-1.3); BLOOD UREA NITROGEN 15 mg/dL (7-20); CALCIUM 9.8 mg/dL (8.4-10.2); CARBON DIOXIDE 26 mmol/L (22-30); CHLORIDE 107 mmol/L (98-107); GLUCOSE 158 mg/dL (75-110)
[2019-08-22 06:21] LABS: ABSOLUTE EOSINOPHILS # (AUTO) 0.1 10^3/uL (0.0-0.6); ABSOLUTE MONOCYTES (AUTO) 0.3 10^3/uL (0.1-1.4); ABSOLUTE NEUT (AUTO) 1.4 10^3/uL (1.7-8.2); BASOPHILS % (AUTO) 0.7 % (0-2); EOSINOPHILS % (AUTO) 3.4 % (0-6); HEMATOCRIT 36.9 % (36.0-47.0); HEMOGLOBIN 12.4 g/dL (12.0-15.5); LYMPHOCYTES % (AUTO) 50.6 % (13-45); MEAN CORPUSCULAR HGB CONC 33.6 g/dL (32.0-36.0); MEAN CORPUSCULAR VOLUME 95 fl (80-97); MONOCYTES % (AUTO) 8.7 % (3-13); PLATELET COUNT 189 10^3/uL (150-450); RED BLOOD COUNT 3.88 10^6/uL (3.72-5.28); RED CELL DISTRIBUTION WIDTH 14.2 % (11.5-14.0); SEGMENTED NEUTROPHILS % (AUTO) 36.6 % (42-78); TOTAL CELLS COUNTED % (AUTO) 100 %; WHITE BLOOD COUNT 3.9 10^3/uL (4.0-10.5)
[2019-08-22] MEDS: METFORMIN HCL 500 MG TABLET PO SCH ×2 (08:57→16:18)
[2019-08-22] MEDS: GLYBURIDE 5 MG TABLET PO SCH ×2 (08:57→16:18)
[2019-08-22] MEDS: INSULIN LISPRO 100 UNIT/ML 3 ML VIAL SUBCUT SCH ×4 (08:57→22:14)
[2019-08-22] MEDS: LOSARTAN POTASSIUM 50 MG TABLET PO SCH (10:00)
[2019-08-22] MEDS: AMLODIPINE BESYLATE 10 MG TABLET PO SCH (10:00)
[2019-08-22] MEDS: ASPIRIN 81 MG TABLET, ENT COATED PO SCH (10:00)
[2019-08-22] MEDS: CEFTRIAXONE 1 GM/D5W RTU 1 GM/50 ML RTUPB IV SCH (10:00)
[2019-08-22] MEDS: NORMAL SALINE 1000 ML 1,000 ML IV PRN (17:53)
--- NOTE | 2019-08-22 19:32 | PDOC PROGRESS REPORT ---
Subjective Progress Note for:: 08/22/19 Subjective:: Patient reported episode of SOB with PT session today. No chest pain, palpitation, nausea, or vomiting. P.O intake remain satisfactory. No fever or chills. Reason For Visit: DEHYDRATION WITH PALPITATION, NEAR SYNCOPE Physical Exam Vital Signs: Temp Pulse Resp BP Pulse Ox 98.1 F 79 16 130/80 H 99 08/22/19 07:19 08/22/19 07:19 08/22/19 07:19 08/22/19 07:19 08/22/19 07:19 Intake & Output 08/21/19 08/22/19 08/23/19 06:59 06:59 06:59 Intake Total 2222 2925 Output Total 4400 1300 Balance -2178 1625 Weight 88.1 kg 88.3 kg Physical Exam: General appearance: PRESENT: no acute distress, obese Head exam: PRESENT: atraumatic, normocephalic Eye exam: PRESENT: conjunctiva pink. ABSENT: pallor, scleral icterus Ear exam: PRESENT: normal external ear exam Mouth exam: PRESENT: moist Respiratory exam: PRESENT: clear to auscultation lety Cardiovascular exam: PRESENT: RRR. ABSENT: diastolic murmur, rubs, systolic murmur GI/Abdominal exam: PRESENT: normal bowel sounds, soft. ABSENT: distended, guarding, mass, organomegaly, rebound, tenderness Extremities exam: ABSENT: pedal edema Neurological exam: PRESENT: alert, awake, oriented to person, oriented to place, oriented to time, oriented to situation, CN II-XII grossly intact. ABSENT: motor sensory deficit Psychiatric exam: PRESENT: appropriate affect, normal mood. ABSENT: homicidal ideation, suicidal ideation Skin exam: PRESENT: dry, warm Results Laboratory Results: 08/22/19 04:56 08/22/19 04:56 08/22/19 08/22/19 04:56 04:56 WBC 3.9 L RBC 3.88 Hgb 12.4 Hct 36.9 MCV 95 MCH 32.0 MCHC 33.6 RDW 14.2 H Plt Count 189 Seg Neutrophils % 36.6 L Sodium 140.8 Potassium 4.0 Chloride 107 Carbon Dioxide 26 Anion Gap 8 BUN 15 Creatinine 0.81 Est GFR ( Amer) > 60 Glucose 158 H Calcium 9.8 Total Bilirubin 0.4 AST 28 Alkaline Phosphatase 75 Total Protein 7.0 Albumin 3.7 08/18/19 19:00 Troponin I < 0.012 NT-Pro-B Natriuret Pep 24 Impressions: Head CT 08/18/19 19:02 IMPRESSION: NO ACUTE INTRACRANIAL FINDINGS. EVIDENCE OF ACUTE STROKE: NO. Chest X-Ray 08/18/19 19:05 IMPRESSION: NO ACUTE FINDINGS. Acute Abdomen Series 08/19/19 00:00 IMPRESSION: Moderate constipation Assessment & Plan - Diagnosis (1) Dehydration Is this a current diagnosis for this admission?: Yes (2) Increased urinary frequency Is this a current diagnosis for this admission?: Yes (3) Constipation Qualifiers: Constipation type: slow transit constipation Qualified Code(s): K59.01 - Slow transit constipation Is this a current diagnosis for this admission?: Yes (4) Abdominal pain, bilateral lower quadrant Is this a current diagnosis for this admission?: Yes (5) Uncontrolled diabetes mellitus Qualifiers: Diabetes mellitus type: type 2 Is this a current diagnosis for this admission?: Yes (6) HTN (hypertension) Qualifiers: Hypertension type: essential hypertension Qualified Code(s): I10 - Essential (primary) hypertension Is this a current diagnosis for this admission?: Yes (7) HLD (hyperlipidemia) Qualifiers: Hyperlipidemia type: unspecified Qualified Code(s): E78.5 - Hyperlipidemia, unspecified Is this a current diagnosis for this admission?: Yes (8) Constipation by delayed colonic transit Is this a current diagnosis for this admission?: Yes - Time Time Spent with patient: 25-34 minutes Level of Care: IMCU Medications reviewed and adjusted accordingly: Yes Anticipated discharge: Home with Homehealth Within: within 72 hours - Inpatient Certification Based on my medical assessment, after consideration of the patient's comorbiditi es, presenting symptoms, or acuity I expect that the services needed warrant INPATIENT care.: Yes I certify that my determination is in accordance with my understanding of [facility]'s requirements for reasonable and necessary INPATIENT services [42 CFR 412.3e].: Yes Medical Necessity: Significant Comorbidiites Make Outpatient Treatment Too Risky, Need Close Monitoring Due to Risk of Patient Decompensation, Need For IV Fluids, Need For Continuous Telemetry Monitoring, Need for IV Antibiotics, Risk of Complication if Not Cared For in Hospital, Risk of Diagnosis Which Will Require Inpatient Eval/Care/Monitoring Post Hospital Care: D/C Film Vault Supervisor Documentation - Plan Summary Plan Summary: Continue current medication management. Possible D/C home with [employer] services.
[2019-08-22] MEDS: DOCUSATE SODIUM 100 MG CAPSULE PO SCH (22:16)
[2019-08-23] MEDS: GABAPENTIN 300 MG CAPSULE PO SCH ×2 (06:09→14:02)
[2019-08-23] MEDS: INSULIN LISPRO 100 UNIT/ML 3 ML VIAL SUBCUT SCH ×2 (09:23→13:27)
[2019-08-23] MEDS: CEFTRIAXONE 1 GM/D5W RTU 1 GM/50 ML RTUPB IV SCH (09:25)
[2019-08-23] MEDS: GLYBURIDE 5 MG TABLET PO SCH (09:25)
[2019-08-23] MEDS: AMLODIPINE BESYLATE 10 MG TABLET PO SCH (09:25)
[2019-08-23] MEDS: LOSARTAN POTASSIUM 50 MG TABLET PO SCH (09:25)
[2019-08-23] MEDS: ASPIRIN 81 MG TABLET, ENT COATED PO SCH (09:25)
[2019-08-23] MEDS: METFORMIN HCL 500 MG TABLET PO SCH (09:25)
[2019-08-23] MEDS: ACETAMINOPHEN 325 MG TABLET PO PRN (14:03)
[2019-08-23 17:14] VITALS: BP 102/65
--- NOTE | 2019-08-23 19:23 | PDOC DISCHARGE SUMMARY ---
Impression - Admit/DC Date/PCP Admission Date/Primary Care Provider: 08/21/19 10:41 CORA ROGER Discharge Date: 08/23/19 - Discharge Diagnosis (1) Dehydration Is this a current diagnosis for this admission?: Yes (2) Increased urinary frequency Is this a current diagnosis for this admission?: Yes (3) Constipation Is this a current diagnosis for this admission?: Yes (4) Abdominal pain, bilateral lower quadrant Is this a current diagnosis for this admission?: Yes (5) Uncontrolled diabetes mellitus Is this a current diagnosis for this admission?: Yes (6) HTN (hypertension) Is this a current diagnosis for this admission?: Yes (7) HLD (hyperlipidemia) Is this a current diagnosis for this admission?: Yes (8) Constipation by delayed colonic transit Is this a current diagnosis for this admission?: Yes - Assessment Summary: Patient was admitted for weakness, shortness of breath, and dizziness with near syncope while she was attending a scientology service. She admitted to roman catholic fasting preceding onset of her symptoms. She was found to be dehydrated upon presentation to the ED. There was concern for possible UTI but her urine culture revealed mixed urogenital leah with insignificant colony growth. She was managed with IV fluid and antibiotic coverage. She demonstrated generalized weakness with need for PT intervention. she will be discharged home today with front wheel walker and bedside commode as well as outpatient physical therapy sessions. She will follow up in the office as instructed upon discharge. - Additional Information Resuscitation Status: Full Code Discharge Diet: Cardiac, Diabetic Discharge Activity: Activity As Tolerated, Slowly Increase Activity, Supervised Activity Referrals: CORA ROGER MD [Primary Care Provider] - 09/04/19 10:00 am Prescriptions: Docusate Sodium [Colace 100 mg Capsule] 200 mg PO QHS #60 capsule Home Medications: Aspirin [Ecotrin 81 mg EC Tablet] 81 mg PO DAILY 08/19/19 Empagliflozin/Linagliptin [Glyxambi 10 mg-5 mg Tablet] 1 each PO DAILY MDD JUST STARTED THIS WEEK 08/19/19 Gabapentin [Neurontin 300 mg Capsule] 600 mg PO Q8 08/19/19 Glyburide/Metformin HCl [Glyburide-Metformin 5-500 mg] 2 tab PO BIDBS 08/19/19 Insulin Degludec [Tresiba Flextouch U-100] 0 units SUBCUT ASDIR PRN MDD NOT STARTED/ JUST PRESCRIBED 08/19/19 Olmesartan/Amlodipin/Hcthiazid [Crqeihj-Efrncc-Wvzg 40-10-12.5] 1 tab PO DAILY 08/19/19 Docusate Sodium [Colace 100 mg Capsule] 200 mg PO QHS #60 capsule 08/23/19 History of Present Illiness History of Present Illness: REJI RAMIREZ is a 68 year old female patient known to my practice who presented to the ED with complain of weakness, shortness of breath, and dizziness with near syncope while she was attending a scientology service. She reported associated palpitation, dryness in her mouth, and participating in a roman catholic fasting process prior to onset of her symptoms. She denied any associated chest pain, coughing, fever or chills. No nausea or vomiting. She reported lower abdominal pain, constipation, and urinary frequency during my bedside evaluation. She denied any dysuria, flank pain or hematuria. her initial evaluation in the ED was unrevealing except for dry oral mucosa , elevated BUN, hyperglycemia, and elevated serum lipase level. Her physical examination revealed dry mucosa. She was advised hospitalization for further evaluation and management. Her morbidities are as listed below. Hospital Course Hospital Course: Patient was admitted for weakness, shortness of breath, and dizziness with near syncope while she was attending a scientology service. She admitted to roman catholic fasting preceding onset of her symptoms. She was found to be dehydrated upon presentation to the ED. There was concern for possible UTI but her urine culture revealed mixed urogenital leah with insignificant colony growth. She was managed with IV fluid and antibiotic coverage. She demonstrated generalized weakness with need for PT intervention. she will be discharged home today with front wheel walker and bedside commode as well as outpatient physical therapy sessions. She will follow up in the office as instructed upon discharge. Physical Exam Vital Signs: Temp Pulse Resp BP Pulse Ox 97.6 F 85 18 132/80 H 97 08/23/19 15:12 08/23/19 15:12 08/23/19 15:12 08/23/19 15:12 08/23/19 15:12 Intake & Output 08/22/19 08/23/19 08/24/19 06:59 06:59 06:59 Intake Total 8219 2352 50 Output Total 3495 4700 Balance 1625 -2348 50 Weight 88.3 kg 87.9 kg General appearance: PRESENT: no acute distress, obese Head exam: PRESENT: atraumatic, normocephalic Eye exam: PRESENT: conjunctiva pink. ABSENT: pallor, scleral icterus Ear exam: PRESENT: normal external ear exam Mouth exam: PRESENT: moist Respiratory exam: PRESENT: clear to auscultation lety Cardiovascular exam: PRESENT: RRR. ABSENT: diastolic murmur, rubs, systolic murmur GI/Abdominal exam: PRESENT: normal bowel sounds, soft. ABSENT: distended, guarding, mass, organomegaly, rebound, tenderness Extremities exam: ABSENT: pedal edema Neurological exam: PRESENT: alert, awake, oriented to person, oriented to place, oriented to time, oriented to situation, CN II-XII grossly intact. ABSENT: motor sensory deficit Psychiatric exam: PRESENT: appropriate affect, normal mood. ABSENT: homicidal ideation, suicidal ideation Skin exam: PRESENT: dry, warm Results Laboratory Results: WBC 3.9 10^3/uL (4.0-10.5) L 08/22/19 04:56 RBC 3.88 10^6/uL (3.72-5.28) 08/22/19 04:56 Hgb 12.4 g/dL (12.0-15.5) 08/22/19 04:56 Hct 36.9 % (36.0-47.0) 08/22/19 04:56 MCV 95 fl (80-97) 08/22/19 04:56 MCH 32.0 pg (27.0-33.4) 08/22/19 04:56 MCHC 33.6 g/dL (32.0-36.0) 08/22/19 04:56 RDW 14.2 % (11.5-14.0) H 08/22/19 04:56 Plt Count 189 10^3/uL (150-450) 08/22/19 04:56 Lymph % (Auto) 50.6 % (13-45) H 08/22/19 04:56 [place] % (Auto) 8.7 % (3-13) 08/22/19 04:56 Eos % (Auto) 3.4 % (0-6) 08/22/19 04:56 Baso % (Auto) 0.7 % (0-2) 08/22/19 04:56 Absolute Neuts (auto) 1.4 10^3/uL (1.7-8.2) L 08/22/19 04:56 Absolute Lymphs (auto) 2.0 10^3/uL (0.5-4.7) 08/22/19 04:56 Absolute Monos (auto) 0.3 10^3/uL (0.1-1.4) 08/22/19 04:56 Absolute Eos (auto) 0.1 10^3/uL (0.0-0.6) 08/22/19 04:56 Absolute Basos (auto) 0.0 10^3/uL (0.0-0.2) 08/22/19 04:56 Seg Neutrophils % 36.6 % (42-78) L 08/22/19 04:56 D-Dimer 0.33 ug/mL (0.00-0.50) 08/18/19 19:00 Sodium 140.8 mmol/L (137-145) 08/22/19 04:56 Potassium 4.0 mmol/L (3.6-5.0) 08/22/19 04:56 Chloride 107 mmol/L (98-107) 08/22/19 04:56 Carbon Dioxide 26 mmol/L (22-30) 08/22/19 04:56 Anion Gap 8 (5-19) 08/22/19 04:56 BUN 15 mg/dL (7-20) 08/22/19 04:56 Creatinine 0.81 mg/dL (0.52-1.25) 08/22/19 04:56 Est GFR ( Amer) > 60 (>60) 08/22/19 04:56 Est GFR (MDRD) Non-Af > 60 (>60) 08/22/19 04:56 Glucose 158 mg/dL (75-110) H 08/22/19 04:56 POC Glucose 79 mg/dL (70-110) 08/23/19 16:22 Hemoglobin A1c % 10.0 % (4.7-6.0) H 08/19/19 10:14 Calcium 9.8 mg/dL (8.4-10.2) 08/22/19 04:56 Total Bilirubin 0.4 mg/dL (0.2-1.3) 08/22/19 04:56 Direct Bilirubin 0.3 mg/dL (0.0-0.4) 08/22/19 04:56 Neonat Total Bilirubin Not Reportable 08/22/19 04:56 Neonat Direct Bilirubin Not Reportable 08/22/19 04:56 Neonat Indirect Bili Not Reportable 08/22/19 04:56 AST 28 U/L (14-36) 08/22/19 04:56 ALT 21 U/L (<35) 08/22/19 04:56 Alkaline Phosphatase 75 U/L (38-126) 08/22/19 04:56 Troponin I < 0.012 ng/mL 08/18/19 19:00 NT-Pro-B Natriuret Pep 24 pg/mL (<125) 08/18/19 19:00 Total Protein 7.0 g/dL (6.3-8.2) 08/22/19 04:56 Albumin 3.7 g/dL (3.5-5.0) 08/22/19 04:56 Lipase 309.4 U/L (23-300) H 08/18/19 19:00 Urine Color STRAW 08/18/19 20:00 Urine Appearance CLEAR 08/18/19 20:00 Urine pH 6.0 (5.0-9.0) 08/18/19 20:00 Ur Specific [place] 1.006 08/18/19 20:00 Urine Protein NEGATIVE mg/dL (NEGATIVE) 08/18/19 20:00 Urine Glucose (UA) >=500 mg/dL (NEGATIVE) H 08/18/19 20:00 Urine Ketones NEGATIVE mg/dL (NEGATIVE) 08/18/19 20:00 Urine Blood NEGATIVE (NEGATIVE) 08/18/19 20:00 Urine Nitrite (Reflex) NEGATIVE (NEGATIVE) 08/18/19 20:00 Urine Bilirubin NEGATIVE (NEGATIVE) 08/18/19 20:00 Urine Urobilinogen NEGATIVE mg/dL (<2.0) 08/18/19 20:00 Leukocyte Esterase Rfl TRACE (NEGATIVE) H 08/18/19 20:00 Urine RBC (Auto) 1 /HPF 08/18/19 20:00 U Hyaline Cast (Auto) 1 /LPF 08/18/19 20:00 Urine Bacteria (Auto) TRACE /HPF 08/18/19 20:00 Urine WBC (Reflex) 4 /HPF 08/18/19 20:00 Squamous Epi Cells Auto 3 /HPF 08/18/19 20:00 Urine Mucus (Auto) OCC /LPF 08/18/19 20:00 Urine Ascorbic Acid NEGATIVE (NEGATIVE) 08/18/19 20:00 Influenza A (Rapid) NEGATIVE (NEGATIVE) 08/18/19 20:06 Influenza B (Rapid) NEGATIVE (NEGATIVE) 08/18/19 20:06 08/18/19 19:00 Troponin I < 0.012 NT-Pro-B Natriuret Pep 24 Impressions: Head CT 08/18/19 19:02 IMPRESSION: NO ACUTE INTRACRANIAL FINDINGS. EVIDENCE OF ACUTE STROKE: NO. Chest X-Ray 08/18/19 19:05 IMPRESSION: NO ACUTE FINDINGS. Acute Abdomen Series 08/19/19 00:00 IMPRESSION: Moderate constipation Plan Health Concerns: Compliance with rehabilitation program. Patient is referred to outpatient rehabilitation program Plan of Treatment: Outpatient close follow up and emphasis on rehabilitation. Goals: Improve functional capacity through physical rehabilitation program. Stroke Is this a Stroke Patient?: No Acute Heart Failure - Is this a Heart Failure Patient?: No
== END 2019-08-23 17:32 | disposition home or self-care (01) | DRG 641 ==
LOC: ER 18:15 → EH 08-19 01:20 → 3W 08-19 05:00 → OBSVTOIN 08-21 10:41
PROVIDERS: ADMIT Internal Medicine Geriatric Medicine; ATTEND Internal Medicine Geriatric Medicine
DX: E86.0 Dehydration (principal); I10 Essential (primary) hypertension; R35.0 Frequency of micturition; E11.65 Type 2 diabetes mellitus with hyperglycemia; K59.01 Slow transit constipation; R06.4 Hyperventilation; F41.9 Anxiety disorder, unspecified; Z88.8 Allergy status to other drugs, medicaments and biological substances; Z82.61 Family history of arthritis; Z83.3 Family history of diabetes mellitus; Z82.49 Family history of ischemic heart disease and other diseases of the circulatory system; Z80.9 Family history of malignant neoplasm, unspecified; Z79.4 Long term (current) use of insulin; Z79.82 Long term (current) use of aspirin
CPT/HCPCS: 36415; 70450; 71045; 74022; 80048; 80053; 81001; 82962; 83036; 83690; 83880; 84484; 85025; 85379; 87086; 87804; 93005; 93010; 96361; 96374; 99285; G0378; J0696; J1815; J2060; J3490; J7030; S0119

== ENCOUNTER → 2019-12-16 | Outpatient (CLI) | payer MEDICARE, OTHER ==
--- NOTE | 2019-12-16 11:32 | WOMENS IMAGING REPORT ---
EXAM DESCRIPTION: 3D SCREENING MAMMO BILAT IMAGES COMPLETED DATE/TIME: 12/16/2019 11:20 am REASON FOR STUDY: Z12.31 SCREENING MAMMO Z12.31 ENCNTR SCREEN MAMMOGRAM FOR MALIGNANT NEOPLASM OF B RE COMPARISON: Multiple since 2008 EXAM PARAMETERS: Views: Standard craniocaudal and mediolateral oblique views of each breast recorded using digital acquisition and breast tomosynthesis. Read with the assistance of CAD. .[facility] - [place] [employer] Version 9.2 LIMITATIONS: None. FINDINGS: No suspicious masses, suspicious calcifications or architectural distortion. No areas of c oncern. IMPRESSION: NEGATIVE MAMMOGRAM. BIRADS 1. BREAST DENSITY: b. There are scattered areas of fibroglandular density. BIRAD: ASSESSMENT: 1 NEGATIVE RECOMMENDATION: ROUTINE SCREENING COMMENT: The patient has been notified of the results by letter per MQSA requirements. Additional no tification policies are in place for contacting patient with suspicious or incomplete findings. Quality ID #225: The [employer] recommends an annual screening mammogram for women aged 40 years or over. This facility utilizes a reminder system to ensure that all patients receive reminder letters, and/or direct phone calls for appointments. This includes reminders for routine scr eening mammograms, diagnostic mammograms, or other Breast Imaging Interventions when appropriate. Th is patient will be placed in the appropriate reminder system. TECHNICAL DOCUMENTATION: FINDING NUMBER: (1) ASSESSMENT: (1) JOB ID: [id number] 2010 [employer]- All Rights Reserved Reading location - IP/workstation name: [email or web address]
== END ==
LOC: WI 10:55
PROVIDERS: ATTEND Internal Medicine Geriatric Medicine
DX: Z12.31 Encounter for screening mammogram for malignant neoplasm of breast (principal)
CPT/HCPCS: 77063; 77067

== ENCOUNTER 2020-02-05 12:16 | Day surgery (SDC) | payer MEDICARE, OTHER ==
[~2020-02-05 12:16] MED LIST: CHONDR SU A NA/HYALUR INTRAOC KIT (SURGICARE) ONE; EPINEPHRINE INJ/PF 1 MG/1 ML AMPULE ONE; KETOROLAC TROMETHAMINE 0.45% 4 DROP/0.4 ML DROPERETTE OS PRN; LIDOCAINE 1%/PHENYLEPHRINE 1.5% 0.8 ML SYRINGE ONE
[2020-02-05] MEDS: TETRACAINE HCL 0.5% OPH SOLN 4 ML OS PRN ×3 (12:38→13:09)
[2020-02-05] MEDS: CYCLOPENTOLATE 0.2%/PHENYLEPHRINE 1% OPH SOLN 2 ML OS PRN ×3 (12:38→13:01)
[2020-02-05] MEDS: BESIFLOXACIN HCL 0.6% OPH SUSP 5 ML BOTTLE OS PRN ×4 (12:38→13:26)
[2020-02-05] MEDS: TROPICAMIDE 1% OPH SOLN 15 ML OS PRN ×3 (12:38→13:01)
[2020-02-05] MEDS ORDERED: MIDAZOLAM 2 MG/2 ML INJ ONE (12:56)
[2020-02-05] MEDS ORDERED: ONDANSETRON HCL INJ/PF 4 MG/2 ML SDV ONE (12:56)
[2020-02-05] MEDS ORDERED: FENTANYL CITRATE INJ/PF 100 MCG/2 ML AMPUL ONE (12:56)
[2020-02-05] MEDS: DORZOLAMIDE HCL 2%/TIMOLOL MALEAT 0.5% OPH SOLN 10 ML OS PRN ×2 (13:26)
--- NOTE | 2020-02-05 13:57 | Operative Report ---
Operative Report-[facility] Operative Report: DATE OF SURGERY: February 05, 2020 PREOPERATIVE DIAGNOSIS: NUCLEAR CATARACT, LEFT EYE. POSTOPERATIVE DIAGNOSIS: NUCLEAR CATARACT, LEFT EYE. PROCEDURE PERFORMED: PHACOEMULSIFICATION WITH POSTERIOR CHAMBER INTRAOCULAR LENS IMPLANT, LEFT EYE. SURGEON: Lopez Law DO MEDICATIONS AND ANESTHESIA: Versed: IV Versed Tetracaine drops: 1 to 2 drops given as needed COMPLICATION: None INDICATIONS FOR SURGERY: Medical necessity: Best corrected visual acuity worse than 20/40 secondary to cataracts with impairment of ability to carry out needs or desired activities, blurred vision, visual distortion, reduced contrast sensitivity and/or glare with association functional impairment and supporting documentation/testing, and cataracts causing symptomatic impairment of visual functions not corrected with tolerable changes in glasses or contact lenses interfering with activities of daily life. PROCEDURE: Consent: The risks, benefits and alternatives of this procedures was discussed with the patient. The patient read and signed the consent forms, was identified and was seated in the exam chair. IOL: MX 60 E 22.0 IOL Diopters: Phacoemulsification with posterior chamber intraocular lens implant: The face was prepped with 5% povidone iodine solution, and a few drops of 5% povidone iodine solution was instilled into the inferior fornix. A non-fenestrated drape was placed over the eye and the lids were parted with the speculum. A paracentesis was made with a 15 degree blade, and 1% lidocaine MPF followed by viscoelastic was injected into the anterior chamber. A 2.4 mm metal micro- keratome was used to create a temporal clear corneal incision. A circular anterior capsulorrhexis was created, followed by hydro-dissection and hydro- delineation. The phacoemulsification hand piece was inserted and the nucleus was removed with the Phaco chop technique. The irrigation-aspiration hand piece was used to remove the residual cortex, and vacuum the posterior capsule. The capsular bag was inflated and viscoelastic and the above-mentioned IOL was injected into the eye with care to insert both leaning and trailing haptics in the capsular bag. The irrigation/aspiration hand piece was reinserted to remove residual viscoelastic from the capsular bag and anterior chamber. The corneal incision was hydrated, and anterior chamber was inflated with sterile BSS via the paracentesis site, and found to be watertight. Postop medication:1 drop of prednisolone into operative by followed by 1 drop of Cosopt into operative eye followed by 1 drop of Besivance intraoperative by Other:
== END 2020-02-05 14:12 | disposition home or self-care (01) ==
LOC: SC 12:16
PROVIDERS: ATTEND Ophthalmology
DX: H25.12 Age-related nuclear cataract, left eye (principal); E11.9 Type 2 diabetes mellitus without complications; I10 Essential (primary) hypertension; E78.00 Pure hypercholesterolemia, unspecified; Z79.82 Long term (current) use of aspirin; Z79.899 Other long term (current) drug therapy; Z79.4 Long term (current) use of insulin
CPT/HCPCS: 66984; 82962; V2632; J2250; J3490 ×3; A9270; J0171; J3010; J2405; 142

== ENCOUNTER 2020-02-19 08:16 | Day surgery (SDC) | payer MEDICARE, OTHER ==
[~2020-02-19 08:16] MED LIST changes: +DORZOLAMIDE HCL 2%/TIMOLOL MALEAT 0.5% OPH SOLN 10 ML OD PRN; +KETOROLAC TROMETHAMINE 0.45% 4 DROP/0.4 ML DROPERETTE OD PRN; -KETOROLAC TROMETHAMINE 0.45% 4 DROP/0.4 ML DROPERETTE OS PRN
[2020-02-19] MEDS: TROPICAMIDE 1% OPH SOLN 15 ML OD PRN ×3 (09:05→09:25)
[2020-02-19] MEDS: CYCLOPENTOLATE 0.2%/PHENYLEPHRINE 1% OPH SOLN 2 ML OD PRN ×3 (09:05→09:25)
[2020-02-19] MEDS: BESIFLOXACIN HCL 0.6% OPH SUSP 5 ML BOTTLE OD PRN ×3 (09:05→09:51)
[2020-02-19] MEDS: TETRACAINE HCL 0.5% OPH SOLN 4 ML OD PRN ×3 (09:06→09:36)
[2020-02-19] MEDS ORDERED: MIDAZOLAM 2 MG/2 ML INJ ONE (09:19)
[2020-02-19] MEDS ORDERED: INSULIN REG, HUMAN 100 UNIT/ML 3 ML VIAL (PYX) ONE (10:00)
--- NOTE | 2020-02-19 10:45 | Operative Report ---
Operative Report-[facility] Operative Report: DATE OF SURGERY: February 19, 2020 PREOPERATIVE DIAGNOSIS: NUCLEAR CATARACT, RIGHT EYE. POSTOPERATIVE DIAGNOSIS: NUCLEAR CATARACT, RIGHT EYE. PROCEDURE PERFORMED: PHACOEMULSIFICATION WITH POSTERIOR CHAMBER INTRAOCULAR LENS IMPLANT, RIGHT EYE. SURGEON: Lopez Law DO MEDICATIONS AND ANESTHESIA: Versed: IV Versed Tetracaine drops: 1 to 2 drops given as needed COMPLICATION: None INDICATIONS FOR SURGERY: Medical necessity: Best corrected visual acuity worse than 20/40 secondary to cataracts with impairment of ability to carry out needs or desired activities, blurred vision, visual distortion, reduced contrast sensitivity and/or glare with association functional impairment and supporting documentation/testing, and cataracts causing symptomatic impairment of visual functions not corrected with tolerable changes in glasses or contact lenses interfering with activities of daily life. PROCEDURE: Consent: The risks, benefits and alternatives of this procedures was discussed with the patient. The patient read and signed the consent forms, was identified and was seated in the exam chair. IOL: MX 60 E 23.5 IOL Diopters: Phacoemulsification with posterior chamber intraocular lens implant: The face was prepped with 5% povidone iodine solution, and a few drops of 5% povidone iodine solution was instilled into the inferior fornix. A non-fenestrated drape was placed over the eye and the lids were parted with the speculum. A paracentesis was made with a 15 degree blade, and 1% lidocaine MPF followed by viscoelastic was injected into the anterior chamber. A 2.4 mm metal micro- keratome was used to create a temporal clear corneal incision. A circular anterior capsulorrhexis was created, followed by hydro-dissection and hydro- delineation. The phacoemulsification hand piece was inserted and the nucleus was removed with the Phaco chop technique. The irrigation-aspiration hand piece was used to remove the residual cortex, and vacuum the posterior capsule. The capsular bag was inflated and viscoelastic and the above-mentioned IOL was injected into the eye with care to insert both leaning and trailing haptics in the capsular bag. The irrigation/aspiration hand piece was reinserted to remove residual viscoelastic from the capsular bag and anterior chamber. The corneal incision was hydrated, and anterior chamber was inflated with sterile BSS via the paracentesis site, and found to be watertight. Postop medication: 1 drop of prednisolone into operative by followed by 1 drop of Cosopt into operative eye followed by 1 drop of Besivance intraoperative by other:
== END 2020-02-19 10:31 | disposition home or self-care (01) ==
LOC: SC 08:16
PROVIDERS: ATTEND Ophthalmology
DX: H25.11 Age-related nuclear cataract, right eye (principal); E11.9 Type 2 diabetes mellitus without complications; I10 Essential (primary) hypertension; E78.00 Pure hypercholesterolemia, unspecified; Z79.82 Long term (current) use of aspirin; Z79.899 Other long term (current) drug therapy; Z79.4 Long term (current) use of insulin
CPT/HCPCS: 66984; 82962; V2632; J2250; J3490 ×3; A9270; J0171; 142; J1815

== ENCOUNTER → 2020-05-08 | Outpatient (CLI) | payer MEDICARE, OTHER ==
--- NOTE | 2020-05-08 15:30 | RADIOLOGY REPORT (SQ) ---
EXAM DESCRIPTION: CT HEAD WITHOUT IMAGES COMPLETED DATE/TIME: 05/08/2020 3:05 pm REASON FOR STUDY: (H55.00)UNSPECIFIED NYSTAGMUS H55.00 UNSPECIFIED NYSTAGMUS R42 DIZZINESS AND GID DINESS COMPARISON: 08/18/2019 TECHNIQUE: Axial images acquired through the brain without intravenous contrast. Images reviewed wi th bone, brain and subdural windows. Additional sagittal and coronal reconstructions were generated. Images stored on PACS. All CT scanners at this facility use dose modulation, iterative reconstruction, and/or weight based d osing when appropriate to reduce radiation dose to as low as reasonably achievable (ALARA). [facility]: Dose Right [facility]: CareDose [facility]: Dose Right [facility]: Teradose 4D [facility]: WARSTUFF RADIATION DOSE: CT Rad equipment meets quality standard of care and radiation dose reduction techniq ues were employed. CTDIvol: 48.9 mGy. DLP: 1033 mGy-cm. mGy. LIMITATIONS: None. FINDINGS: VENTRICLES: Prominent. CEREBRUM: No masses. No hemorrhage. No midline shift. Areas of low density in the white matter mos t likely due to chronic micro-vascular ischemic change. No evidence for acute infarction. CEREBELLUM: No masses. No hemorrhage. No alteration of density. No evidence for acute infarction. EXTRAAXIAL SPACES: Mild age-related involutional change. No fluid collections. No masses. ORBITS AND GLOBE: No intra- or extraconal masses. Normal contour of globe without masses. CALVARIUM: No fracture. PARANASAL SINUSES: No fluid or mucosal thickening. SOFT TISSUES: No mass or hematoma. OTHER: No other significant finding. IMPRESSION: MILD CHRONIC CHANGES OF ATROPHY AND MICROVASCULAR ISCHEMIA. NO ACUTE PROCESS. EVIDENCE OF ACUTE STROKE: NO. TECHNICAL DOCUMENTATION: JOB ID: [id number] Quality ID # [id number]: Final reports with documentation of one or more dose reduction techniques (e.g., Au tomated exposure control, adjustment of the mA and/or kV according to patient size, use of iterative reconstruction technique) 2010 [employer]- All Rights Reserved Reading location - IP/workstation name: [email or web address]-
== END ==
LOC: RAD 14:34
PROVIDERS: ATTEND Nurse Practitioner Adult Health
DX: H55.00 Unspecified nystagmus (principal); R42 Dizziness and giddiness
CPT/HCPCS: 70450